=== PATIENT | female | born 1950 | race Caucasian/White ===

== ENCOUNTER 2016-09-06 09:37 | Observation (INO) ==
[2016-09-06] MEDS ORDERED: Nitroglycerin 0.4 MG TAB.SUBL SL ONE (09:51)
[2016-09-06] MEDS ORDERED: Aspirin 81 MG TAB.CHEW PO ONE (09:51)
--- NOTE | 2016-09-06 10:03 | Emergency Department Note ---
Disposition Clinical Impression: Unstable angina Acute exacerbation of CHF (congestive heart failure) Qualifiers: Congestive heart failure type: unspecified congestive heart failure type Qualified Code(s): I50.9 - Heart failure, unspecified Disposition: Admitted As Inpatient Condition: Good Referrals: Carroll Shipman MD [Primary Care Provider] - Forms: ED Satisfaction Letter Chest Pain HPI - General Chief Complaint: ED Chest Pain Stated Complaint: chest pain, josias Time Seen by Provider: 09/06/16 09:45 Source: patient, EMS Mode of arrival: EMS Limitations: no limitations Vital Signs Reviewed: Yes Nursing Notes Reviewed: Yes - History of Present Illness HPI Narrative: 65-year-old female with history of CAD, status post CABG, hypertension, hyperlipidemia, type 2 diabetes who presents to the ER with a chief complaint of chest pain. Patient states she was seen at her primary care provider today and she was referred here due to ongoing chest pain. She reports that since July she has had intermittent chest pain that comes roughly every 2 days. Reports onset at rest with a duration of roughly 30 minutes. States that it feels like there is a heaviness there. Reports that whenever she goes to walk her shortness of breath and chest pain worsen. She states she did have a recent stress test which was okay. She reports her CABG was maybe in 2006. Patient does follow with cardiology. She denies a history of DVT or PE. Does report that she feels more swollen than usual. No other complaints. Pt complaint: chest pain Onset (ago): hour(s) Duration: intermittent Onset: during rest Pain Location: left chest Severity: moderate Severity scale (1-10): 7 Quality: heaviness Pain Radiation: none Improves with: rest Worsens with: exertion Associated symptoms: Reports: nausea, diaphoresis, dyspnea. Denies: vomiting Treatments prior to arrival chest pain: none - Related Data On Oral Contraceptives: No Home Medications Medication Instructions Recorded Confirmed Allopurinol [Zyloprim] 300 mg PO DAILY 03/31/15 03/31/15 Aspirin [Adult Low Dose Aspirin EC] 81 mg PO DAILY 03/31/15 03/31/15 Atenolol [Tenormin] 100 mg PO DAILY 03/31/15 03/31/15 Atorvastatin Calcium [Lipitor] 80 mg PO DAILY 03/31/15 03/31/15 Cetirizine HCl [Zyrtec] 10 mg PO DAILY 03/31/15 03/31/15 Cetirizine HCl [Zyrtec] 10 mg PO DAILY 03/31/15 03/31/15 Citalopram Hydrobromide [Celexa] 40 mg PO DAILY 03/31/15 03/31/15 Diltiazem HCl [Diltiazem 24Hr Cd] 120 mg PO DAILY 03/31/15 03/31/15 Ergocalciferol (VITAMIN D2) 50,000 unit PO 2XW 03/31/15 03/31/15 [Drisdol (50,000 Unit)] Ipratropium/Albuterol Neb [Duoneb] 3 ml IH Q6HR 03/31/15 03/31/15 Isosorbide MONOnitrate (24 HR) 30 mg PO DAILY 03/31/15 03/31/15 [Imdur] Magnesium Oxide [Magnesium] 400 mg PO BID 03/31/15 03/31/15 Metformin HCl [Fortamet] 1,000 mg PO BID 03/31/15 03/31/15 Omeprazole [PriLOSEC] 40 mg PO DAILY 03/31/15 03/31/15 Ranitidine HCl [Zantac] 150 mg PO DAILY 03/31/15 03/31/15 Ranolazine [Ranexa] 1,000 mg PO BID 03/31/15 03/31/15 SitaGLIPtin [Januvia] 50 mg PO DAILY 03/31/15 03/31/15 Spironolactone [Aldactone] 25 mg PO DAILY 03/31/15 03/31/15 Previous Rx's Medication Instructions Recorded HYDROcodone/Acet 5/325 mg [Falun 1 tab PO Q6H PRN #10 tab 10/04/15 5-325 mg] Ondansetron [Zofran] 8 mg PO Q8HR #24 tablet 10/04/15 Albuterol Sulfate [Albuterol 2 puff IH Q4HR #1 hfa.aer.ad 10/06/15 Inhaler] HYDROcodone BIT/Homatropine LQ 5 mg PO Q6H #60 syrup 10/06/15 [Hycodan Syrup] Levofloxacin [Levaquin] 750 mg PO DAILY #7 tablet 10/06/15 Ondansetron ODT [Zofran ODT] 4 mg PO Q6HR #10 tab.rapdis 10/06/15 Allergies Allergy/AdvReac Type Severity Reaction Status Date / Time ibuprofen Allergy Mild Hives Verified 03/31/15 10:28 lisinopril Allergy Hives Verified 10/05/15 19:59 potassium chloride Allergy Difficulty Verified 09/06/16 10:30 [From [facility]] Breathing All systems ED: reviewed and negative except as stated. Constitutional: Reports: chills. Denies: fever Cardiovascular: Reports: chest pain, dyspnea on exertion Respiratory: Reports: dyspnea. Denies: cough, wheezes Gastrointestinal: Reports: nausea. Denies: abdominal pain, vomiting Musculoskeletal: Denies: back pain, neck pain Chest Pain PMH - Past Medical History Medical history: Reports: diabetes, hyperlipidemia, hypertension Surgical history: Reports: cholecystectomy, coronary bypass (CABG), herniorrhaphy Psychiatric history: Reports: anxiety, depression - Social History Smoking Status: Never smoker Alcohol use: Reports: none Drug use: Reports: none Physical Exam - General Limitations: no limitations General appearance: alert, in no apparent distress - Head Head exam: atraumatic, normocephalic, normal inspection - Eye Eye exam: Present: normal appearance, EOMI - ENT ENT exam: normal exam - Neck Neck exam: Present: normal inspection, full ROM - Chest Chest inspection: Present: normal inspection, symmetric chest wall rise - Respiratory Respiratory exam: Present: normal lung sounds bilaterally. Absent: accessory muscle use - Cardiovascular Cardiovascular exam: Present: regular rate, normal rhythm, normal heart sounds - Abdominal Exam Abdominal exam: Present: soft, Non-Tender. Absent: tenderness - Expanded Upper Extremity Exam Shoulder exam: Present: normal inspection, full ROM Arm exam: Present: normal inspection, full ROM Elbow exam: Present: normal inspection, full ROM Forearm/Wrist exam: Present: normal inspection, full ROM Hand exam: Present: normal inspection, full ROM - Expanded Lower Extremity Exam Hip/Pelvis exam: Present: normal inspection, full ROM Upper leg exam: Present: normal inspection, full ROM Knee exam: Present: normal inspection, full ROM Lower leg exam: Present: normal inspection, full ROM, swelling (1+ bilateral lower extremity pitting edema) Ankle exam: Present: normal inspection, full ROM Foot/toe exam: Present: normal inspection, full ROM - Neurological Exam Neurological exam: Present: alert - Psychiatric Psychiatric exam: Present: normal affect, normal mood - Skin Skin exam: Present: warm, dry, intact, normal color Course Course Narrative: Patient seen and examined. Vital signs reviewed. She reports that she is still having active chest pain. We will get an EKG, chest x-ray as well as labs. We will also give a trial of nitroglycerin. Disposition pending. Patient's last echo shows an EF of 55-60%. - Reevaluation(s) Reevaluation #1: I discussed results of lab work and imaging with the patient. She states that the nitroglycerin did help her pain. I discussed admission with the patient. She reports that she does not want to be admitted to the hospital. We will give her a dose of Lasix and ambulate her here with pulse oximetry. Disposition pending. Reevaluation #2: Patient reports that she would like to be admitted. We will contact the hospitalist. Vital Signs Temperature 98.3 F 09/06/16 09:44 Pulse Rate 70 09/06/16 09:44 Respiratory Rate 22 09/06/16 09:44 Blood Pressure 194/108 09/06/16 09:44 O2 Sat by Pulse Oximetry 97 09/06/16 09:44 Temperature 98.3 F 09/06/16 09:44 Pulse Rate 66 09/06/16 12:26 Respiratory Rate 20 09/06/16 12:26 Blood Pressure 148/73 09/06/16 12:26 O2 Sat by Pulse Oximetry 95 09/06/16 12:26 Oxygen Delivery Oxygen Delivery Nasal Cannula Chest Pain - [facility] Narrative Medical decision making narrative: 65-year-old female presents to the ER due to chest pain. Has been going on for a few months. She gives a decent story for unstable angina. She also has pulmonary congestion on her chest x-ray. Patient was given sublingual nitroglycerin with improvement of her symptoms. We also gave her 40 mg of Lasix. Patient ambulated in the department with desaturation to 83%. This case was discussed with the hospitalist and the patient is admitted for further evaluation. - Lab Data Lab results reviewed: Yes I reviewed the patient's lab results. Result diagrams: 09/06/16 10:11 09/06/16 10:11 Lab Results 09/06/16 09/06/16 09/06/16 Range/Units 10:11 10:11 10:11 WBC 7.5 (4.3-11.1) K/mcL RBC 4.09 (3.82-4.97) M/mcL Hgb 11.3 L (11.5-15.4) g/dL Hct 36.4 (35.3-44.9) % MCV 89.0 (83.0-100.0) fL MCH 27.6 L (28.0-33.3) pg MCHC 31.0 L (31.6-35.5) g/dL RDW 14.5 (11.5-14.5) % Plt Count 156 (140-400) K/mcL MPV 9.4 (9.4-12.4) fL Immature Gran % 0.4 (0-4) % Seg Neutrophils % 70.0 % Lymphocytes % 19.7 % Monocytes % 8.0 % Eosinophils % 1.6 % Basophils % 0.3 % Neutrophils # 5.3 (1.6-8.9) K/mcL Lymphocytes # 1.5 (0.6-4.6) K/mcL Monocytes # 0.6 (0.0-1.3) K/mcL Eosinophils # 0.1 (0.0-0.6) K/mcL Basophils # 0.0 (0.0-0.2) K/mcL Sodium 143 (136-145) mEq/L Potassium 3.9 (3.5-4.5) mEq/L Chloride 107 (98-109) mEq/L Carbon Dioxide 27 (19-29) mEq/L BUN 10 (7-20) mg/dL Creatinine 0.99 (0.57-1.11) mg/dL Est GFR ( Amer) > 60 (> 60) Est GFR (Non-Af Amer) 56 L (> 60) BUN/Creatinine Ratio 10 (6-26) Glucose 185 H (70-99) mg/dL Calculated Osmolality 300 (280-300) Calcium 8.8 (8.6-10.8) mg/dL Troponin I (0-0.03) ng/mL B-Natriuretic Peptide 207 H (0-100) pg/mL 09/06/16 Range/Units 10:11 WBC (4.3-11.1) K/mcL RBC (3.82-4.97) M/mcL Hgb (11.5-15.4) g/dL Hct (35.3-44.9) % MCV (83.0-100.0) fL MCH (28.0-33.3) pg MCHC (31.6-35.5) g/dL RDW (11.5-14.5) % Plt Count (140-400) K/mcL MPV (9.4-12.4) fL Immature Gran % (0-4) % Seg Neutrophils % % Lymphocytes % % Monocytes % % Eosinophils % % Basophils % % Neutrophils # (1.6-8.9) K/mcL Lymphocytes # (0.6-4.6) K/mcL Monocytes # (0.0-1.3) K/mcL Eosinophils # (0.0-0.6) K/mcL Basophils # (0.0-0.2) K/mcL Sodium (136-145) mEq/L Potassium (3.5-4.5) mEq/L Chloride (98-109) mEq/L Carbon Dioxide (19-29) mEq/L BUN (7-20) mg/dL Creatinine (0.57-1.11) mg/dL Est GFR ( Amer) (> 60) Est GFR (Non-Af Amer) (> 60) BUN/Creatinine Ratio (6-26) Glucose (70-99) mg/dL Calculated Osmolality (280-300) Calcium (8.6-10.8) mg/dL Troponin I 0.01 (0-0.03) ng/mL B-Natriuretic Peptide (0-100) pg/mL - Radiology Data Radiology results reviewed: Yes I reviewed the patient's radiology results. Chest X-Ray 09/06/16 09:51 IMPRESSION: Cardiomegaly, pulmonary vascular congestion, and mild pulmonary edema. Findings could reflect congestive heart failure. There are small bilateral pleural effusions. D/ / 09/06/2016 10:32:49 Sara Pickard MD / sandra Interpreting Provider: Sara Pickard MD - EKG Data EKG attestation: Yes I reviewed and interpreted this EKG. EKG results narrative: EKG demonstrates normal sinus rhythm with rate of 71 bpm. Normal axis. DE interval 202 QRS duration 79 QTC 419 diffuse T wave flattening in the lateral and inferior leads unchanged from previous. No ST elevations or depressions. No acute ischemic findings. No significant changes from previous EKG dated . Heart Score - Score History: Moderately Suspicious EKG: Normal Age: Greater than 65 Risk Factors: Equal/Greater than 3 risk factor or history of atherosclerotic disease Troponin: Less than normal limit HEART Score Total: 5 S.B.A.Tutu - Joe Situation: Demographics, MOA Background: Presenting Complaint, Relevant PMH, Meds, & Allergies Assessment: Vital Signs, Course and respsone to treatment, Exam Concerns, Patient/Family Expectation, Pertinant Lab Results, Outstanding Labs Recommendation: Barrier(s) to disposition, Recommendation based on pending studies, treatments, or consults (n) Jose L.Zane.A.Tutu Report Given to: Dr. Nicolasa Diaz Repor Time: 13:12
--- NOTE | 2016-09-06 10:15 | Emergency Department Note ---
START Narrative - START START: I examined this patient and my medical decision-making was reviewed with the [employer]/PA/Advanced Practice Nurse/Resident Physician. I agree with the documented findings, disposition and treatment plan as described except to the extent set forth below. ED attending note: Patient seen with emergency medicine resident Dr. Summers. Please see a copy of his note for details of the H&P, evaluation, management and disposition of this patient. We independently had [id number] contact with the patient Briefly: 65-year-old female with chest pain. Referred by her PCP for ongoing chest pain. Patient had a stress test results were known gallbladder looked up. EKG shows no acute ischemic changes. She does have worsening lower extremity pitting edema 3+. Slight basilar crackles. Patient having troponin chest x-ray normal lab work. Disposition pending. Patient stable.
[2016-09-06 10:21] LABS: Basophils % 0.3 %; Eosinophils # 0.1 K/mcL (0.0-0.6); Eosinophils % 1.6 %; Hematocrit 36.4 % (35.3-44.9); Hemoglobin 11.3 g/dL (11.5-15.4); Immature Granulocytes % 0.4 % (0-4); Lymphocytes # 1.5 K/mcL (0.6-4.6); Lymphocytes % 19.7 %; Mean Corpuscular Hemoglobin 27.6 pg (28.0-33.3); Mean Platelet Volume 9.4 fL (9.4-12.4); Monocytes # 0.6 K/mcL (0.0-1.3); Neutrophils # 5.3 K/mcL (1.6-8.9); Platelet Count 156 K/mcL (140-400); Red Blood Count 4.09 M/mcL (3.82-4.97); Red Cell Distribution Width 14.5 % (11.5-14.5)
[2016-09-06 10:31] LABS: BUN/Creatinine Ratio 10 (6-26); Blood Urea Nitrogen 10 mg/dL (7-20); Calcium 8.8 mg/dL (8.6-10.8); Carbon Dioxide 27 mEq/L (19-29); Chloride 107 mEq/L (98-109); Glucose 185 mg/dL (70-99); Osmolality,Calculated 300 (280-300); Potassium 3.9 mEq/L (3.5-4.5); Sodium 143 mEq/L (136-145); eGFR For African Americans > 60 (> 60); eGFR For Non-African Americans 56 (> 60)
[2016-09-06] MEDS ORDERED: Furosemide 40 MG/4 ML VIAL IVP ONE (10:48)
[2016-09-06] MEDS ORDERED: Naloxone 0.4 MG/ML INJ IVP PRN (13:59)
--- NOTE | 2016-09-06 14:21 | Internal Med History&Physical ---
<Jhonathan Baldwin - Last Filed: 09/06/16 17:48> Internal Medicine - H&P: HPI History of present illness: Ms. Yuen is a 65 year old female Internal Medicine - H&P: Meds Allopurinol [Zyloprim] 300 mg PO DAILY 03/31/15 [History] Aspirin [Adult Low Dose Aspirin EC] 81 mg PO DAILY 03/31/15 [History] Atenolol [Tenormin] 100 mg PO DAILY 03/31/15 [History] Cetirizine HCl [Zyrtec] 10 mg PO DAILY 03/31/15 [History] Citalopram Hydrobromide [Celexa] 40 mg PO DAILY 03/31/15 [History] Diltiazem HCl [Diltiazem 24Hr Cd] 120 mg PO DAILY 03/31/15 [History] Isosorbide MONOnitrate (24 HR) [Imdur] 30 mg PO DAILY 03/31/15 [History] Metformin HCl [Fortamet] 1,000 mg PO BID 03/31/15 [History] Omeprazole [PriLOSEC] 40 mg PO DAILY 03/31/15 [History] Ranolazine [Ranexa] 1,000 mg PO BID 03/31/15 [History] SitaGLIPtin [Januvia] 50 mg PO DAILY 03/31/15 [History] Spironolactone [Aldactone] 25 mg PO DAILY 03/31/15 [History] Albuterol Sulfate [Albuterol Inhaler] 2 puff IH Q4HR #1 hfa.aer.ad 10/06/15 [Rx] Atorvastatin [Lipitor] 10 mg PO HS 09/06/16 [History] Ezetimibe [Zetia] 10 mg PO DAILY 09/06/16 [History] Insulin DETEMIR [Levemir] 78 unit SQ HS 09/06/16 [History] Allergies ibuprofen Allergy (Mild, Verified 03/31/15 10:28) Hives lisinopril Allergy (Verified 10/05/15 19:59) Hives potassium chloride [From K-Dur] Allergy (Verified 09/06/16 10:30) Difficulty Breathing All Systems PM: A 10-system review of systems was performed and is negative for pertinent findings except as documented above in the HPI. - Constitutional Vitals: Temp Pulse Resp BP Pulse Ox 97.7 F 73 18 149/84 96 09/06/16 15:31 09/06/16 15:31 09/06/16 15:51 09/06/16 15:31 09/06/16 15:51 Internal Med - H&P Results - Labs CBC & Chem 7: 09/06/16 10:11 09/06/16 10:11 Labs: Cardiac Enzymes 09/06/16 Range/Units 16:24 Troponin I 0.01 (0-0.03) ng/mL - Attending Attestation I examined this patient and my medical decision-making was reviewed with the DATA CENTER TECHNICIAN/PA/Advanced Practice Nurse/Resident Physician. I agree with the documented findings, disposition and treatment plan as described except to the extent set forth below. Patient w/ CAD, s/p CABG, here w/ CP now CP free, reports mild pressure and SOB. Initial troponin negative. Heart RRR S1S2 + leg edema. Plan R/O ACS, cardiology consult, iv lasix for CHF. <Charisma Meyers - Last Filed: 09/06/16 23:58> Date of Encounter: 09/06/16 Time of Encounter: 14:16 Assessment and Plan (1) Congestive heart failure Current visit: Yes Status: Acute Patient presented with chest pain on and off since May as well as increasing shortness of breath and dyspnea on exertion since May. Chest x- ray revealed cardiomegaly, pulmonary vascular congestion, mild pulmonary edema, and small bilateral pleural effusions. BNP was elevated at 207. Previous echo was in March 2015 and showed LVEF of 55-60%, normal LV size and systolic function, normal LV diastolic function. She reports she has never been diagnosed with congestive heart failure. Hold home dose of diltiazem. 40 mg Lasix IV push twice a day Titrate oxygen to maintain oxygen saturation greater than 90% Echocardiogram Consult to cardiology, spoke with Dr. An, they will see patient today. Qualifiers: Congestive heart failure type: unspecified congestive heart failure type Congestive heart failure chronicity: unspecified congestive heart failure chronicity Qualified Code(s): I50.9 - Heart failure, unspecified (2) Chest pain, rule out acute myocardial infarction Current visit: No Status: Acute Patient reporting chest pain daily since May, accompanied by increasing shortness of breath and increasing dyspnea on exertion. She has a history of coronary artery disease status post CABG, hypertension, type 2 diabetes. Initial troponin negative at 0.01. EKG showed normal sinus rhythm, no ST elevations or depressions, no changes from previous EKG in September 2015. Continuous cardiac cath rn Serial troponins for trend Echocardiogram Cardiology consult, spoke with Dr. An (3) COPD (chronic obstructive pulmonary disease) Current visit: No Status: Chronic Patient with diagnosis of COPD, wears 2 L of oxygen at home. Reporting increased shortness of breath over the last several months. Reports dry cough. DuoNeb treatments 4 times a day Albuterol nebulizer every 2 hours when necessary Titrate oxygen to maintain oxygen saturation greater than 90%. Qualifiers: COPD type: chronic bronchitis Chronic bronchitis type: unspecified Qualified Code(s): J42 - Unspecified chronic bronchitis (4) Type 2 diabetes mellitus Current visit: No Status: Chronic diabetic, heart healthy diet Hold home Januvia and Metformin Check blood sugars ACHS Continue home basal dose of 78u levemir HS sliding scale correction dose ACHS hypoglycemic protocol. Qualifiers: Diabetes mellitus complication status: without complication Diabetes mellitus long term care phlebotomist insulin use: with detention use Qualified Code(s): E11.9 - Type 2 diabetes mellitus without complications; Z79.4 - [facility] (current) use of insulin (5) DVT prophylaxis Current visit: No Status: Acute Encourage ambulation Antiembolic stockings Lovenox 40 mg subcutaneous daily Internal Medicine - H&P: HPI Chief complaint: chest pain Admitted From: Emergency Dept Plans for Post Hospital Care: Home History of present illness: Ms. Yuen is a 65 year old female with hypertension, type 2 diabetes, COPD, hyperlipidemia, sleep apnea, coronary artery disease status post CABG, who presented to the emergency department at the direction of her insurance office manager today with complaints of chest pain on and off since May. She reports she has episodes of chest pain daily, she describes them as dull and achy and she says she they last a few hours. Her current episode of chest pain started last evening and it has not let up. She also reports increased shortness of breath from her baseline. She does have COPD and wears 2 L of oxygen at home. She notes both her legs and feet have been swelling more than her baseline as well, she is also complaining of a dry cough and some mild nausea. She reports occasional palpitations and occasional lightheadedness as well. She denies any fever, chills, sweats, headache. She denies any dysuria or changes in bowel habits or abdominal pain or vomiting. Evaluation in the emergency department was significant for an elevated BNP of 207 up from her previous normal value of 76 in September 2015. Troponin was negative at 0.01, EKG showed normal sinus rhythm no ST elevations or depressions and no changes from previous EKG in September 2015. 3 showed cardiomegaly and pulmonary vascular congestion, mild pulmonary edema, small bilateral pleural effusions. On exam, patient is alert and oriented, in no acute distress. Heart has regular rate and rhythm with systolic murmur. Lungs have mild crackles in bilateral bases. Respiratory rate is normal and respiratory effort is normal. She has bilateral lower extremity +2 edema. Past Med Surg Social Fam HX - Past Medical History Medical history: COPD, coronary artery disease, diabetes, hyperlipidemia, hypertension Psychiatric history: anxiety, depression - Past Surgical History Surgical History: cholecystectomy, coronary bypass (CABG), herniorrhaphy - Social History Smoking Status: Never smoker Smokeless Tobacco Status: No Alcohol use: none Drug use: none - Family History Mother Living Status: Age at : 86 Cause of : Heart failure Hx Family Cardiac Disorders: Yes Father Living Status: Age at : 52 Cause of : [place] Hx Family Cardiac Disorders: Yes All Systems PM: A 10-system review of systems was performed and is negative for pertinent findings except as documented above in the HPI. - Constitutional Constitutional: no chills, no fever(s), no night sweats - EENT Eyes: no change in vision, no discharge, no pain, no photophobia Ears: no ear discharge, no ear pain, no tinnitus Nose, mouth and throat: no dysphagia, no nasal discharge, no neck pain, no sore throat - Cardiovascular Cardiovascular ROS IM: chest pain, dyspnea, dyspnea on exertion, lightheadedness , palpitations, no diaphoresis, no syncope - Respiratory Respiratory: cough, dyspnea, dyspnea on exertion, no wheezing, no excessive phlegm production - Gastrointestinal Gastrointestinal: no abdominal pain, no diarrhea, no hematemesis, no hematochezia, no melena, no nausea, no vomiting - Genitourinary Genitourinary: no change in urinary stream, no dysuria, no flank pain, no hematuria - Musculoskeletal Musculoskeletal ROS IM: no numbness, no tingling - Integumentary Integumentary IM: no rash, no unusual bruising - Neurological Neurological ROS: no confusion, no convulsions, no focal weakness, no numbness, no tingling, no tremor(s) - Hematologic/Lymphatic Hematologic/Lymphatic: no easy bruising - Constitutional Vitals: Temp Pulse Resp BP Pulse Ox 98.3 F 66 20 148/73 95 09/06/16 09:44 09/06/16 12:26 09/06/16 12:26 09/06/16 12:26 09/06/16 12:26 General appearance: Present: A&O X 3, morbidly obese, pleasant, no acute distress - Head Head exam: Present: atraumatic, normocephalic - Eye Eye exam: Present: PERRL, conjuntiva pink, sclera anicteric Pupils: Present: PERRL - Neck Neck exam general surgery: Present: supple, trachea midline. Absent: lymphadenopathy - Respiratory Respiratory exam: Present: CTAB. Absent: accessory muscle use, rales, rhonchi, wheezes Additional comments: crackles in bilateral bases - Cardiovascular Cardiovascular exam: Present: RRR, +S1, +S2, systolic murmur. Absent: diastolic murmur, gallop, rubs - GI/Abdominal GI/Abdominal exam: Present: normal bowel sounds, soft, no peritoneal signs. Absent: distended, tenderness - Extremities Exam Extremities exam: Present: pedal edema, warm, radial pulses palpable and symetrical. Absent: calf tenderness, cyanotic Additional comments: +2 BLE edema - Neurological Exam Neurological exam: Present: CN II-XII intact, oriented X3, no focal deficits. Absent: facial droop, speech deficit - Skin Skin exam: Present: dry, intact Internal Med - H&P Results - Labs CBC & Chem 7: 09/06/16 10:11 09/06/16 10:11 Labs: All Lab Results (24 Hours) 09/06/16 09/06/16 09/06/16 Range/Units 10:11 10:11 10:11 WBC 7.5 (4.3-11.1) K/mcL RBC 4.09 (3.82-4.97) M/mcL Hgb 11.3 L (11.5-15.4) g/dL Hct 36.4 (35.3-44.9) % MCV 89.0 (83.0-100.0) fL MCH 27.6 L (28.0-33.3) pg MCHC 31.0 L (31.6-35.5) g/dL RDW 14.5 (11.5-14.5) % Plt Count 156 (140-400) K/mcL MPV 9.4 (9.4-12.4) fL Immature Gran % 0.4 (0-4) % Seg Neutrophils % 70.0 % Lymphocytes % 19.7 % Monocytes % 8.0 % Eosinophils % 1.6 % Basophils % 0.3 % Neutrophils # 5.3 (1.6-8.9) K/mcL Lymphocytes # 1.5 (0.6-4.6) K/mcL Monocytes # 0.6 (0.0-1.3) K/mcL Eosinophils # 0.1 (0.0-0.6) K/mcL Basophils # 0.0 (0.0-0.2) K/mcL Sodium 143 (136-145) mEq/L Potassium 3.9 (3.5-4.5) mEq/L Chloride 107 (98-109) mEq/L Carbon Dioxide 27 (19-29) mEq/L BUN 10 (7-20) mg/dL Creatinine 0.99 (0.57-1.11) mg/dL Est GFR ( Amer) > 60 (> 60) Est GFR (Non-Af Amer) 56 L (> 60) BUN/Creatinine Ratio 10 (6-26) Glucose 185 H (70-99) mg/dL Calculated Osmolality 300 (280-300) Calcium 8.8 (8.6-10.8) mg/dL Troponin I (0-0.03) ng/mL B-Natriuretic Peptide 207 H (0-100) pg/mL 09/06/16 Range/Units 10:11 WBC (4.3-11.1) K/mcL RBC (3.82-4.97) M/mcL Hgb (11.5-15.4) g/dL Hct (35.3-44.9) % MCV (83.0-100.0) fL MCH (28.0-33.3) pg MCHC (31.6-35.5) g/dL RDW (11.5-14.5) % Plt Count (140-400) K/mcL MPV (9.4-12.4) fL Immature Gran % (0-4) % Seg Neutrophils % % Lymphocytes % % Monocytes % % Eosinophils % % Basophils % % Neutrophils # (1.6-8.9) K/mcL Lymphocytes # (0.6-4.6) K/mcL Monocytes # (0.0-1.3) K/mcL Eosinophils # (0.0-0.6) K/mcL Basophils # (0.0-0.2) K/mcL Sodium (136-145) mEq/L Potassium (3.5-4.5) mEq/L Chloride (98-109) mEq/L Carbon Dioxide (19-29) mEq/L BUN (7-20) mg/dL Creatinine (0.57-1.11) mg/dL Est GFR ( Amer) (> 60) Est GFR (Non-Af Amer) (> 60) BUN/Creatinine Ratio (6-26) Glucose (70-99) mg/dL Calculated Osmolality (280-300) Calcium (8.6-10.8) mg/dL Troponin I 0.01 (0-0.03) ng/mL B-Natriuretic Peptide (0-100) pg/mL - Diagnostic Studies Chest x-ray Additional comments: Chest X-Ray 09/06/16 09:51 IMPRESSION: Cardiomegaly, pulmonary vascular congestion, and mild pulmonary edema. Findings could reflect congestive heart failure. There are small bilateral pleural effusions. D/ / 09/06/2016 10:32:49 Sara Pickard MD / sandra Interpreting Provider: Sara Pickard MD
[2016-09-06] MEDS ORDERED: Albuterol 2.5 MG/3 ML NEBULIZER IH PRN (14:36)
[2016-09-06] MEDS ORDERED: *HR* Dextrose 50 % in Water (Syg) 50 ML SYRINGE IVP PRN (14:37)
[2016-09-06] MEDS ORDERED: Dextrose Gel 15 GM PO PRN ×2 (14:37)
[2016-09-06] MEDS ORDERED: D5% in Water 1,000 ML IV PRN (14:37)
[2016-09-06 15:21] LABS: Hemoglobin A1C 7.2 %
[2016-09-06] MEDS: Ipratropium/Albuterol Neb 3 ML IH SCH ×2 (15:51→23:34)
[2016-09-06] MEDS: Insulin LISPRO 300 UNITS/3 ML VIAL SQ SCH ×2 (17:28→23:44)
[2016-09-06] MEDS ORDERED: Furosemide 40 MG/4 ML VIAL IVP SCH (21:00)
[2016-09-06] MEDS ORDERED: Insulin DETEMIR 100 UNIT/ML X5UNITS SQ SCH (21:00)
[2016-09-06] MEDS: Insulin DETEMIR 100 UNIT/ML X5UNITS SQ SCH (23:54)
[2016-09-06] MEDS: Ranolazine 500 MG TAB.ER.12H PO SCH (23:54)
[2016-09-07] MEDS: Ipratropium/Albuterol Neb 3 ML IH SCH ×4 (05:10→22:26)
[2016-09-07] MEDS: *HR* Enoxaparin 40 MG/0.4 ML SYRINGE SQ SCH (06:24)
[2016-09-07 06:57] LABS: Basophils % 0.3 %; Eosinophils # 0.1 K/mcL (0.0-0.6); Eosinophils % 1.8 %; Hemoglobin 11.5 g/dL (11.5-15.4); Immature Granulocytes % 0.4 % (0-4); Lymphocytes # 2.1 K/mcL (0.6-4.6); Lymphocytes % 30.9 %; Mean Corpuscular HGB Conc 30.3 g/dL (31.6-35.5); Mean Corpuscular Hemoglobin 27.3 pg (28.0-33.3); Mean Corpuscular Volume 90.3 fL (83.0-100.0); Monocytes # 0.7 K/mcL (0.0-1.3); Monocytes % 9.7 %; Neutrophils # 3.9 K/mcL (1.6-8.9); Platelet Count 163 K/mcL (140-400); Red Blood Count 4.21 M/mcL (3.82-4.97); Red Cell Distribution Width 14.6 % (11.5-14.5); Segmented Neutrophils % 56.9 %
[2016-09-07 06:58] LABS: BUN/Creatinine Ratio 11 (6-26); Blood Urea Nitrogen 12 mg/dL (7-20); Calcium 8.7 mg/dL (8.6-10.8); Carbon Dioxide 31 mEq/L (19-29); Chloride 99 mEq/L (98-109); Glucose 156 mg/dL (70-99); Osmolality,Calculated 301 (280-300); Potassium 3.6 mEq/L (3.5-4.5); Sodium 144 mEq/L (136-145); eGFR For African Americans > 60 (> 60); eGFR For Non-African Americans 52 (> 60)
--- NOTE | 2016-09-07 07:11 | ECHO - Doppler Report ---
Echocardiogram Name: Lisa Yuen Date of Study: 09/06/2016 Date: 1950 Ht: 62.0 in Medical Record#: [id number] Age: 65 Wt: 285.0 lb Gender: Female BSA: 2.22 Order #: [id number] Location: [facility] Room #: 2A37 Reading Physician: Otoniel Gar MD, [facility] Resource Management Specialist: Elise Betancourt Ordering Physician: Charisma Meyers CNP Primary Physician: Carroll Shipman MD Indications: Chest pain, CHF Impressions: Normal LV systolic function, LVEF 60-65%. Mild-moderate concentric left ventricular hypertrophy. Moderate left ventricular diastolic dysfunction. Normal right ventricular size and function. Moderately dilated left atrium. Mild aortic stenosis. Unable to estimate RVSP due to lack of TR jet. Left Ventricular Wall Motion: Rest Echo Findings All wall segments showed normal motion. Findings: Study Quality * Suboptimal echo windows. ECG Findings * Normal sinus rhythm. Left Ventricle * Normal LV systolic function, LVEF 60-65%. * Mild-moderate concentric left ventricular hypertrophy. * Moderate left ventricular diastolic dysfunction. Right Ventricle * Normal right ventricular size and function. Left Atrium * Moderately dilated left atrium. Right Atrium * Normal right atrial size. Interatrial Septum * Lipomatous interatrial septum. Aorta * Normally sized aortic root. Pericardium * There is no pericardial effusion present. IVC * Normal IVC dimensions and inspiratory collapse. Aortic Valve * Aortic valve not well visualized. * Mild aortic stenosis. * No aortic regurgitation. Mitral Valve * Mild mitral annular calcification * No mitral stenosis. * Trace mitral regurgitation. Tricuspid Valve * Tricuspid valve not well visualized. * No tricuspid stenosis. * Trace tricuspid regurgitation. * Unable to estimate RVSP due to lack of TR jet. Pulmonic Valve * Pulmonic valve is not well visualized. * No pulmonic stenosis. * Trace pulmonic regurgitation. History Hypertension Diabetes Hypercholesteremia Family History of CAD History of CAD/PTCA Coronary Artery Bypass Graft Congestive Heart Failure 04/01/2015 a Previous Echo was performed. Measurements: BP: 149/ 84 2D Normal Values RVIDd: 3.10 cm IVSd: 1.30 cm 0.6 - 1.0 cm LVIDd: 5.90 cm 3.7 - 5.6 cm LVPWd: 1.40 cm 0.6 - 1.1 cm LVIDs: 3.80 cm 1.5 - 3.6 cm AO: 2.70 cm < 4.0 cm LVOT Diam: 2.00 cm LA volume: 86 Mitral Valve Peak E:.76 m/sec Peak A:.67 m/sec E/A Ratio:1.1 Peak E' Lat Abdullahi:6.34 cm/s Peak E' Med Abdullahi:3.8 cm/s E/E' Lat Ratio:11.9 E/E' Med Ratio:19.9 Aortic Valve Peak Abdullahi:2.60 m/sec Peak Grad:27.00 mmHg Mean Grad:12.00 mmHg Valve Area:1.82 cm2 Updated by Otoniel Gar MD, [facility] on 09/07/2016 7:07:20 AM electronically signed on 09/07/2016 7:07:48 AM with status of Final Wall Motion Fry: 1=Normal, 2=Hypokinesis, 3=Akinesis, 4=Dyskinesis, 5=Aneurysmal, 6=Hyperkinetic, X=Not Visualized (Blank)=Missing
--- NOTE | 2016-09-07 08:18 | Internal Med Progress Note ---
<Matt Smart - Last Filed: 09/07/16 11:02> Date of Encounter: 09/07/16 Time of Encounter: 08:18 - Assessment and plan (1) Acute exacerbation of CHF (congestive heart failure) Current Visit: Yes Status: Acute Assessment and plan: 09/07/16 Significant clinical improvement Echocardiogram: LVEF 60-65%, moderate left ventricular diastolic dysfunction Cardiac stress testing (pharmacologic) pending 09/06/16 Patient presented with chest pain on and off since May as well as increasing shortness of breath and dyspnea on exertion since May. Chest x- ray revealed cardiomegaly, pulmonary vascular congestion, mild pulmonary edema, and small bilateral pleural effusions. BNP was elevated at 207. Previous echo was in March 2015 and showed LVEF of 55-60%, normal LV size and systolic function, normal LV diastolic function. She reports she has never been diagnosed with congestive heart failure. Hold home dose of diltiazem. 40 mg Lasix IV push twice a day Titrate oxygen to maintain oxygen saturation greater than 90% Echocardiogram Consult to cardiology, spoke with Dr. An, they will see patient today Qualifiers: Congestive heart failure type: unspecified congestive heart failure type Qualified Code(s): I50.9 - Heart failure, unspecified (2) Chest pain, rule out acute myocardial infarction Current Visit: No Status: Acute Assessment and plan: 09/07/16 Chest pain has resolved Follow-up cardiac stress testing, if normal will likely discharge 09/06/16 Patient reporting chest pain daily since May, accompanied by increasing shortness of breath and increasing dyspnea on exertion. She has a history of coronary artery disease status post CABG, hypertension, type 2 diabetes. Initial troponin negative at 0.01. EKG showed normal sinus rhythm, no ST elevations or depressions, no changes from previous EKG in September 2015. Continuous clinical research monitor Serial troponins for trend Echocardiogram Cardiology consult, spoke with Dr. An (3) COPD (chronic obstructive pulmonary disease) Current Visit: No Status: Chronic Assessment and plan: 09/07/16 Continue current treatment 09/06/16 Patient with diagnosis of COPD, wears 2 L of oxygen at home. Reporting increased shortness of breath over the last several months. Reports dry cough. DuoNeb treatments 4 times a day Albuterol nebulizer every 2 hours when necessary Titrate oxygen to maintain oxygen saturation greater than 90%. Qualifiers: COPD type: chronic bronchitis Chronic bronchitis type: unspecified Qualified Code(s): J42 - Unspecified chronic bronchitis (4) Type 2 diabetes mellitus Current Visit: No Status: Chronic Assessment and plan: 09/07/16 Stable. Continue current plan 09/06/16 diabetic, heart healthy diet Hold home Januvia and Metformin Check blood sugars ACHS Continue home basal dose of 78u levemir HS sliding scale correction dose ACHS hypoglycemic protocol. 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 She was alert and oriented and in no acute distress. She states that her chest pain has resolved and her dyspnea has improved significantly. She denies any new complaints - Constitutional Vitals: Temp Pulse Resp BP Pulse Ox 97.8 F 78 18 144/80 96 09/07/16 08:14 09/07/16 08:14 09/07/16 08:14 09/07/16 08:14 09/07/16 08:14 General appearance: Present: A&O X 3, morbidly obese, pleasant, no acute distress - Head Head exam: Present: atraumatic, normocephalic - Eye Eye exam: Present: PERRL, conjuntiva pink, sclera anicteric Pupils: Present: PERRL - Neck Neck exam general surgery: Present: supple, trachea midline. Absent: lymphadenopathy - Respiratory Respiratory exam: Present: decreased breath sounds, rales. Absent: accessory muscle use, rhonchi, wheezes Additional comments: Mild bilateral rales - Cardiovascular Cardiovascular exam: Present: RRR, +S1, +S2. Absent: diastolic murmur, gallop, rubs, systolic murmur - GI/Abdominal GI/Abdominal exam: Present: normal bowel sounds, soft, no peritoneal signs. Absent: distended, tenderness - Extremities Exam Extremities exam: Present: pedal edema, warm, radial pulses palpable and symetrical. Absent: calf tenderness, cyanotic - Neurological Exam Neurological exam: Present: CN II-XII intact, oriented X3, no focal deficits. Absent: pronater drift, facial droop, speech deficit - Skin Skin exam: Present: dry, intact Internal Medicine: Result - Labs CBC & Chem 7: 09/07/16 06:08 09/07/16 06:08 Labs: Short CBC 09/07/16 Range/Units 06:08 WBC 6.8 (4.3-11.1) K/mcL Hgb 11.5 (11.5-15.4) g/dL Hct 38.0 (35.3-44.9) % Plt Count 163 (140-400) K/mcL Neutrophils # 3.9 (1.6-8.9) K/mcL BMP 09/07/16 06:08 Sodium 144 Potassium 3.6 Chloride 99 Carbon Dioxide 31 H BUN 12 Creatinine 1.06 Glucose 156 H Calcium 8.7 Cardiac Enzymes 09/06/16 09/06/16 Range/Units 16:24 22:25 Troponin I 0.01 0.01 (0-0.03) ng/mL - VTE Documentation of Mechanical Device: Intermittent pneumatic compression device Consult Discharge Plan - Plan Referrals: Carroll Shipman MD [Primary Care Provider] - 09/17/16 3:00 pm (Please follow up as schedule...) <Chaitanya Chairez P - Last Filed: 09/07/16 18:25> - Constitutional Vitals: Temp Pulse Resp BP Pulse Ox 97.7 F 63 18 125/75 93 L 09/07/16 16:24 09/07/16 16:24 09/07/16 16:24 09/07/16 16:24 09/07/16 16:24 Internal Medicine: Result - Labs CBC & Chem 7: 09/07/16 06:08 09/07/16 06:08 Labs: Short CBC 09/07/16 Range/Units 06:08 WBC 6.8 (4.3-11.1) K/mcL Hgb 11.5 (11.5-15.4) g/dL Hct 38.0 (35.3-44.9) % Plt Count 163 (140-400) K/mcL Neutrophils # 3.9 (1.6-8.9) K/mcL BMP 09/07/16 06:08 Sodium 144 Potassium 3.6 Chloride 99 Carbon Dioxide 31 H BUN 12 Creatinine 1.06 Glucose 156 H Calcium 8.7 Cardiac Enzymes 09/06/16 Range/Units 22:25 Troponin I 0.01 (0-0.03) ng/mL - Attending Attestation I examined this patient and my medical decision-making was reviewed with the GEODETIC ENGINEER/PA/Advanced Practice Nurse/Resident Physician. I agree with the documented findings, disposition and treatment plan as described except to the extent set forth below. 2 day stress test : starting tomorrow
[2016-09-07] MEDS: Loratadine 10 MG TABLET PO SCH (08:45)
[2016-09-07] MEDS: Aspirin Enteric Coated 81 MG Tablet PO SCH (08:45)
[2016-09-07] MEDS: Ranolazine 500 MG TAB.ER.12H PO SCH ×2 (08:45→21:22)
[2016-09-07] MEDS: Insulin LISPRO 300 UNITS/3 ML VIAL SQ SCH ×4 (08:45→21:21)
[2016-09-07] MEDS: Spironolactone 25 MG TABLET PO SCH (08:46)
[2016-09-07] MEDS: Furosemide 40 MG/4 ML VIAL IVP SCH ×2 (08:48→16:30)
[2016-09-07] MEDS ORDERED: Isosorbide MONOnitrate (24 HR) 30 MG TAB.ER.24H PO SCH (09:00)
[2016-09-07] MEDS ORDERED: (Ezetimibe [Zetia] 10 MG) PO SCH (09:00)
--- NOTE | 2016-09-07 17:48 | Electrocardiograph Report ---
[place] [id number] Test Date: 2016-09-06 Pat Name: Lisa Yuen Department: 102 Room: 2A Gender: F Loss Prevention Lead: : 1950 Requested By: Ismael Summers Order Number: [id number] Reading MD: Sharifa Morales Measurements Intervals Amma Rate: 71 P: 47 FL: 202 QRS: 25 QRSD: 79 T: 26 QT: 397 QTc: 419 Interpretive Statements SINUS RHYTHM NONSPECIFIC ST \T\ T-WAVE ABNORMALITY Electronically Signed On 09-07-2016 17:47:00 EST by Sharifa Morales
[2016-09-07] MEDS: Insulin DETEMIR 100 UNIT/ML X5UNITS SQ SCH (21:21)
[2016-09-07] MEDS ORDERED: Acetaminophen 325 MG TABLET PO PRN (21:55)
[2016-09-08] MEDS: Ipratropium/Albuterol Neb 3 ML IH SCH ×4 (05:01→23:09)
[2016-09-08] MEDS: *HR* Enoxaparin 40 MG/0.4 ML SYRINGE SQ SCH (06:16)
[2016-09-08] MEDS: Insulin LISPRO 300 UNITS/3 ML VIAL SQ SCH ×4 (08:47→21:16)
[2016-09-08] MEDS ORDERED: Regadenoson 0.4 MG/5 ML SYRINGE IVP ONE (10:24)
[2016-09-08] MEDS: Ranolazine 500 MG TAB.ER.12H PO SCH ×2 (12:23→21:15)
[2016-09-08] MEDS: Aspirin Enteric Coated 81 MG Tablet PO SCH (12:23)
[2016-09-08] MEDS: Loratadine 10 MG TABLET PO SCH (12:24)
[2016-09-08] MEDS: Furosemide 40 MG/4 ML VIAL IVP SCH ×2 (12:24→15:36)
[2016-09-08] MEDS: Spironolactone 25 MG TABLET PO SCH (12:24)
--- NOTE | 2016-09-08 18:03 | Internal Med Progress Note ---
Date of Encounter: 09/08/16 Time of Encounter: 18:01 - Assessment and plan (1) Acute exacerbation of CHF (congestive heart failure) Current Visit: Yes Status: Acute Assessment and plan: 09/08/2016 laying flat and has occasional SOB improved clinically did day 1 of 2 stress test will get stress test result tomorrow 09/07/16 Significant clinical improvement Echocardiogram: LVEF 60-65%, moderate left ventricular diastolic dysfunction Cardiac stress testing (pharmacologic) pending 09/06/16 Patient presented with chest pain on and off since May as well as increasing shortness of breath and dyspnea on exertion since May. Chest x- ray revealed cardiomegaly, pulmonary vascular congestion, mild pulmonary edema, and small bilateral pleural effusions. BNP was elevated at 207. Previous echo was in March 2015 and showed LVEF of 55-60%, normal LV size and systolic function, normal LV diastolic function. She reports she has never been diagnosed with congestive heart failure. Hold home dose of diltiazem. 40 mg Lasix IV push twice a day Titrate oxygen to maintain oxygen saturation greater than 90% Echocardiogram Consult to cardiology, spoke with Dr. An, they will see patient today Qualifiers: Congestive heart failure type: unspecified congestive heart failure type Qualified Code(s): I50.9 - Heart failure, unspecified (2) Chest pain, rule out acute myocardial infarction Current Visit: No Status: Acute Assessment and plan: 09/07/16 Chest pain has resolved Follow-up cardiac stress testing, if normal will likely discharge 09/06/16 Patient reporting chest pain daily since May, accompanied by increasing shortness of breath and increasing dyspnea on exertion. She has a history of coronary artery disease status post CABG, hypertension, type 2 diabetes. Initial troponin negative at 0.01. EKG showed normal sinus rhythm, no ST elevations or depressions, no changes from previous EKG in September 2015. Continuous child monitor Serial troponins for trend Echocardiogram Cardiology consult, spoke with Dr. An (3) COPD (chronic obstructive pulmonary disease) Current Visit: No Status: Chronic Assessment and plan: 09/08/2016 stable and will continue same treatment. 09/07/16 Continue current treatment 09/06/16 Patient with diagnosis of COPD, wears 2 L of oxygen at home. Reporting increased shortness of breath over the last several months. Reports dry cough. DuoNeb treatments 4 times a day Albuterol nebulizer every 2 hours when necessary Titrate oxygen to maintain oxygen saturation greater than 90%. Qualifiers: COPD type: chronic bronchitis Chronic bronchitis type: unspecified Qualified Code(s): J42 - Unspecified chronic bronchitis - Subjective Interval history: seen and examined denies chest pain completed day 1 of 2 stress test - Constitutional Vitals: Temp Pulse Resp BP Pulse Ox 97.4 F L 62 16 123/67 949 H 09/08/16 15:16 09/08/16 15:16 09/08/16 16:53 09/08/16 15:16 09/08/16 16:53 General appearance: Present: A&O X 3, morbidly obese, pleasant, no acute distress - Head Head exam: Present: atraumatic, normocephalic - Eye Eye exam: Present: PERRL, conjuntiva pink, sclera anicteric Pupils: Present: PERRL - Neck Neck exam general surgery: Present: supple, trachea midline. Absent: lymphadenopathy - Respiratory Respiratory exam: Present: CTAB. Absent: accessory muscle use, rales, rhonchi, wheezes - Cardiovascular Cardiovascular exam: Present: RRR, +S1, +S2. Absent: diastolic murmur, gallop, rubs, systolic murmur - GI/Abdominal GI/Abdominal exam: Present: normal bowel sounds, soft, no peritoneal signs. Absent: distended, tenderness - Extremities Exam Extremities exam: Present: warm, radial pulses palpable and symetrical. Absent : calf tenderness, cyanotic, pedal edema - Neurological Exam Neurological exam: Present: CN II-XII intact, oriented X3, no focal deficits. Absent: pronater drift, facial droop, speech deficit - Skin Skin exam: Present: dry, intact Internal Medicine: Result - Labs CBC & Chem 7: 09/07/16 06:08 09/07/16 06:08 - VTE Documentation of Mechanical Device: Intermittent pneumatic compression device Consult Discharge Plan - Plan Referrals: Carroll Shipman MD [Primary Care Provider] - 09/17/16 3:00 pm (Please follow up as schedule...)
[2016-09-08] MEDS: Insulin DETEMIR 100 UNIT/ML X5UNITS SQ SCH (21:15)
[2016-09-09] MEDS: Ipratropium/Albuterol Neb 3 ML IH SCH ×2 (04:43→09:28)
[2016-09-09] MEDS: *HR* Enoxaparin 40 MG/0.4 ML SYRINGE SQ SCH (06:41)
[2016-09-09] MEDS: Insulin LISPRO 300 UNITS/3 ML VIAL SQ SCH ×2 (09:03→12:24)
[2016-09-09] MEDS: Ranolazine 500 MG TAB.ER.12H PO SCH (09:46)
[2016-09-09] MEDS: Aspirin Enteric Coated 81 MG Tablet PO SCH (09:46)
[2016-09-09] MEDS: Spironolactone 25 MG TABLET PO SCH (09:46)
[2016-09-09] MEDS: Loratadine 10 MG TABLET PO SCH (09:46)
[2016-09-09] MEDS: Furosemide 40 MG/4 ML VIAL IVP SCH (09:47)
[2016-09-09 11:40] VITALS: BP 141/83
--- NOTE | 2016-09-09 11:55 | Nuclear Medicine Stress Report ---
Regadenoson Nuclear 2 day Name: Lisa Yuen Date of Study: 09/08/2016 Date: 1950 Ht: 61.0 in Medical Record#: [id number] Age: 65 Wt: 286.0 lb Gender: Female Order #: [id number] Location: [facility] Room: [facility] Supervising Provider: Christopher Paul CNP Reading Physician: Asael An DO, FACJewell, PETER CHEUNG Ordering Physician: Chaitanya Chairez MD Primary Care Physician: Carroll Shipman MD Stress Technologist: Fartun Ricardo, COURT ASSISTANT, CCT, CPFT [facility] Staff: Rigo Beverly Indications: Chest Pain Impression: Pharmacologic stress ECG is non-diagnostic due to baseline non-specific ST and T changes and submaximal HR. Gated EF = 64%. Perfusion imaging was negative for ischemia or infarct. History: Hypertension Diabetes Hypercholesteremia History of Coronary Artery Bypass Surgery Stress Test Summary: Stress Test Type: Pharmacologic Regadenoson 0.4mg/5ml given IV Baseline Information: Initial Heart Rate: 68 Blood Pressure: 140/90 Stress Information: Stress Time: 4 min sec Test Terminated Due to (primary): As per protocol Maximum Blood Pressure: 136/84 Maximum Heart Rate: 79 Percent Maximum Heart Rate Achieved: 52 Double Product: 10012 METS Reached: 1 Symptoms: Shortness of breath, Nausea Nuclear Summary: SPECT myocardial perfusion imaging using Tc99m Sestamibi given intravenously was performed at rest and following cardiac stress testing. The resting images were obtained following initial dose of 34.7 mCi. Following stress an additional dose of 32.4 mCi was given at peak exercise or 30 seconds post regadenoson infusion. Medication Given: Time Medication Dose Units Route Findings: Stress Note * Resting ECG demonstrated normal sinus rhythm with nonspecific ST and T changes. * No baseline arrhythmias were noted. * Pharmacologic stress ECG is non-diagnostic for ischemia due to baseline non-specific ST and T changes and submaximal HR. * No arrhythmias were noted during stress. * Patient had no chest pain during stress. Hemodynamic responses * Normal hemodynamic responses to pharmacologic stress. Study Quality * Study quality is average. Gated EF % * Gated EF = 64%. Left Ventricle * The left ventricle is not dilated. LVEDV = 109 mL. NORMALS * Normal wall motion. * Normal segmental perfusion in rest. * Normal segmental perfusion in stress. TID * No evidence of transient ischemic dilatation. TID ratio = 0.93. Lung Uptake * There is no evidence of increase lung uptake. Updated by Asael An DO, FACJewell, JONATAN, PETER on 09/09/2016 11:49:24 AM electronically signed on 09/09/2016 11:51:06 AM with status of Final
--- NOTE | 2016-09-09 12:51 | Discharge Summary ---
Date of Encounter: 09/09/16 Time of Encounter: 12:48 - Discharge Diagnosis (1) Acute exacerbation of CHF (congestive heart failure) Priority: Primary Status: Acute Qualifiers: Congestive heart failure type: unspecified congestive heart failure type Qualified Code(s): I50.9 - Heart failure, unspecified (2) Chest pain, rule out acute myocardial infarction Priority: Primary Status: Acute (3) COPD (chronic obstructive pulmonary disease) Priority: Secondary Status: Chronic Qualifiers: COPD type: chronic bronchitis Chronic bronchitis type: unspecified Qualified Code(s): J42 - Unspecified chronic bronchitis (4) History of coronary artery bypass graft Priority: Secondary Status: Chronic (5) Type 2 diabetes mellitus Priority: Secondary Status: Chronic Qualifiers: Diabetes mellitus complication status: without complication Diabetes mellitus bed bug exterminator insulin use: with bed bug exterminator use Qualified Code(s): E11.9 - Type 2 diabetes mellitus without complications; Z79.4 - intermediate frame tender (current) use of insulin - Discharge Medications Home Medications: Allopurinol [Zyloprim] 300 mg PO DAILY 03/31/15 [History] Aspirin [Adult Low Dose Aspirin EC] 81 mg PO DAILY 03/31/15 [History] Atenolol [Tenormin] 100 mg PO DAILY 03/31/15 [History] Cetirizine HCl [Zyrtec] 10 mg PO DAILY 03/31/15 [History] Citalopram Hydrobromide [Celexa] 40 mg PO DAILY 03/31/15 [History] Diltiazem HCl [Diltiazem 24Hr Cd] 120 mg PO DAILY 03/31/15 [History] Isosorbide MONOnitrate (24 HR) [Imdur] 30 mg PO DAILY 03/31/15 [History] Metformin HCl [Fortamet] 1,000 mg PO BID 03/31/15 [History] Omeprazole [PriLOSEC] 40 mg PO DAILY 03/31/15 [History] Ranolazine [Ranexa] 1,000 mg PO BID 03/31/15 [History] SitaGLIPtin [Januvia] 50 mg PO DAILY 03/31/15 [History] Spironolactone [Aldactone] 25 mg PO DAILY 03/31/15 [History] Albuterol Sulfate [Albuterol Inhaler] 2 puff IH Q4HR #1 hfa.aer.ad 10/06/15 [Rx] Atorvastatin [Lipitor] 10 mg PO HS 09/06/16 [History] Ezetimibe [Zetia] 10 mg PO DAILY 09/06/16 [History] Insulin DETEMIR [Levemir] 78 unit SQ HS 09/06/16 [History] Allergies/Adverse Reactions: Allergies ibuprofen Allergy (Mild, Verified 03/31/15 10:28) Hives lisinopril Allergy (Verified 10/05/15 19:59) Hives potassium chloride [From K-Dur] Allergy (Verified 09/06/16 10:30) Difficulty Breathing Procedures/tests Complete & Pending: Procedures Performed prior 72 hours Category Date Time Status NM dahlia perf SPECT multi [NM] Routine Exams 09/07/16 11:25 Taken EV echocardiogram Routine Y 09/06/16 14:11 Completed SP pharm nuclear stress Stat Y 09/08/16 07:30 Completed Date of admission: 09/06/16 13:55 Primary care physician: Carroll Shipman MD Discharging clinician: Chaitanya Chairez - Patient Status Disposition: Home, Self-Care Condition: Good Functional capacity at discharge: independent ambulation Overall status at discharge: patient is progressing back to baseline - Discharge Instructions Follow Up With: Carroll Shipman MD [Primary Care Provider] - 09/17/16 3:00 pm (Please follow up as schedule...) - Diet and Activity Activity: as per physical therapy Diet: diabetic diet Interval History: Ms. Yuen is a 65 year old female with hypertension, type 2 diabetes, COPD, hyperlipidemia, sleep apnea, coronary artery disease status post CABG, who presented to the emergency department at the direction of her flavoring maker today with complaints of chest pain on and off since May. She reports she has episodes of chest pain daily, she describes them as dull and achy and she says she they last a few hours. Her current episode of chest pain started last evening and it has not let up. She also reports increased shortness of breath from her baseline. She does have COPD and wears 2 L of oxygen at home. She notes both her legs and feet have been swelling more than her baseline as well, she is also complaining of a dry cough and some mild nausea. She reports occasional palpitations and occasional lightheadedness as well. She denies any fever, chills, sweats, headache. She denies any dysuria or changes in bowel habits or abdominal pain or vomiting. Evaluation in the emergency department was significant for an elevated BNP of 207 up from her previous normal value of 76 in September 2015. Hospital course: Her Troponin was negative at 0.01, EKG showed normal sinus rhythm no ST elevations or depressions and no changes from previous EKG in September 2015. 3 showed cardiomegaly and pulmonary vascular congestion, mild pulmonary edema, small bilateral pleural effusions. Patient was hospitalized. Serial troponins were done. Serial troponins were negative. She was treated with IV Lasix. she was treated as per CHF protocol, She responded very well to the intravenous Lasix treatment. She was subjected to the new pierced stress test. Nuclear stress test revealed her ejection fraction is around 60%. She does not have any wall motion abnormality. Plan -Patient can go home. -Fluid restriction to 1500 mL per day. -No new medication added. -Patient will see her primary care physician in one to 2 weeks. -Patient will see her cardiology as scheduled. -The time of discharge patient was explained about her diagnosis. All questions answered. - Time Spent with Patient Total time spent providing and/or coordinating discharge services: - Constitutional Vitals: Temp Pulse Resp BP Pulse Ox 97.8 F 62 18 141/83 95 09/09/16 11:35 09/09/16 11:35 09/09/16 11:35 09/09/16 11:35 09/09/16 11:35 General appearance: Present: A&O X 3, morbidly obese, pleasant, no acute distress - VTE Documentation of Mechanical Device: Intermittent pneumatic compression device
== END 2016-09-09 14:35 | disposition home or self-care (01) ==
LOC: EMEROO 09:37 → 2ANU 09:37
PROVIDERS: ADMIT Internal Medicine; ATTEND Internal Medicine

== ENCOUNTER 2017-08-18 15:45 | Inpatient (IN) ==
[~2017-08-18 15:45] MED LIST: *HR* EPINEPHrine 1 MG/10 ML SYRINGE IVP ONE
[2017-08-18] MEDS ORDERED: 0.9 % Sodium Chloride 1,000 ML IVC ONE ×2 (15:59→16:14)
[2017-08-18] MEDS ORDERED: Ondansetron 4 MG/2 ML VIAL ONE (16:00)
[2017-08-18] MEDS ORDERED: *HR* FentaNYL (PF) 100 MCG/2 ML VIAL ONE (16:00)
[2017-08-18] MEDS ORDERED: Ondansetron 4 MG/2 ML VIAL IVP ONE ×2 (16:01→16:29)
[2017-08-18] MEDS ORDERED: *HR* FentaNYL (PF) 100 MCG/2 ML VIAL IVP ONE (16:01)
--- NOTE | 2017-08-18 16:01 | Emergency Department Note ---
START Narrative - START START: I examined this patient and my medical decision-making was reviewed with the emergency medicine resident. I agree with the documented findings, disposition and treatment plan as described except to the extent set forth below. Patient seen with emergency medicine resident Dr. LEXY KIM, Please see a copy of his note for details of the H&P, ED evaluation, management and disposition. I have independently evaluated the patient and confirmed appropriate portions of the history and physical exam. Briefly: This 66-year-old female history of cholecystectomy distant past 1 month of increasing bilateral upper quadrant abdominal pain with distention nausea denies vomiting fever chills or chest pain. Patient came by EMS because he got much worse today. She is distended with guarding but no rigidity or rebound. Slightly decreased bowel sounds. But obese body habitus makes the exam difficult. Patient getting IV fentanyl and Zofran for pain and nausea. Patient getting screening labs and abdominopelvic CT.
[2017-08-18 16:08] LABS: Basophils % 0.3 %; Eosinophils # 0.1 K/mcL (0.0-0.6); Eosinophils % 1.1 %; Hematocrit 37.1 % (35.3-44.9); Hemoglobin 11.4 g/dL (11.5-15.4); Immature Granulocytes % 0.6 % (0-4); Lymphocytes # 2.1 K/mcL (0.6-4.6); Lymphocytes % 18.3 %; Mean Corpuscular HGB Conc 30.7 g/dL (31.6-35.5); Mean Corpuscular Volume 87.7 fL (83.0-100.0); Mean Platelet Volume 10.5 fL (9.4-12.4); Monocytes % 8.5 %; Neutrophils # 8.1 K/mcL (1.6-8.9); Platelet Count 233 K/mcL (140-400); Red Blood Count 4.23 M/mcL (3.82-4.97); Red Cell Distribution Width 16.5 % (11.5-14.5); Segmented Neutrophils % 71.2 %
[2017-08-18 16:15] LABS: INR 1.2; Prothrombin Time 13.1 Seconds (9.4-12.1)
[2017-08-18] MEDS ORDERED: Calcium Gluconate 2,000 MG in 0.9 % Sodium Chloride 50 ML IVPB ONE (16:17)
[2017-08-18] MEDS ORDERED: *HR* Atropine Sulfate 1 MG/10 ML SYRINGE ONE (16:17)
[2017-08-18] MEDS: *HR* Atropine Sulfate 1 MG/10 ML SYRINGE IVP STA ×2 (16:18→16:54)
--- NOTE | 2017-08-18 16:19 | Emergency Department Note ---
Disposition Clinical Impression: Symptomatic bradycardia Acute exacerbation of CHF (congestive heart failure) Qualifiers: Heart failure type: unspecified Qualified Code(s): I50.9 - Heart failure, unspecified Abdominal pain Qualifiers: Abdominal location: epigastric Qualified Code(s): R10.13 - Epigastric pain Disposition: Admitted As Inpatient Condition: Fair Referrals: Carroll Shipman MD [Primary Care Provider] - Forms: ED Satisfaction Letter, Work/School Release Time of Disposition: 18:40 Abdominal Pain HPI - General Chief Complaint: ED Abdominal Pain Stated Complaint: abd pain/ N/V Time Seen by Provider: 08/18/17 15:47 Source: patient, EMS Mode of arrival: EMS Limitations: no limitations Nursing Notes Reviewed: Yes Vital Signs Reviewed: Yes - History of Present Illness HPI Narrative: 66-year-old female history of CABG, hypertension, hyperlipidemia, diabetes, presents with severe epigastric pain, some shortness of breath. Patient states been having symptoms for several weeks but they are worse today. She was brought in by EMS, flexion abdomen, EMS stated that she was hypertensive with a low heart rate, the patient does endorse taking atenolol, she denies fever or chills, productive cough, congestion. Patient states she has had abdominal pain with some nausea but no emesis. She denies history of previous aortic aneurysm or dissection. Patient denies hematochezia or melena. States her pain is 8 out of 10, crampy achy in her epigastrium. Pt Subjective Complaint: abdominal pain Onset (ago): week(s) Consistency: intermittent Location: epigastric Pain Severity: moderate Pain Scale: 8 Quality: cramping, aching Radiation: none Improves with: nothing Worsens with: nothing Associated symptoms: Reports: nausea. Denies: vomiting, diarrhea, fever, chills Treatments prior to arrival: none - Related Data Home Medications Medication Instructions Recorded Confirmed Allopurinol [Zyloprim] 300 mg PO DAILY 03/31/15 09/06/16 Aspirin [Adult Low Dose Aspirin EC] 81 mg PO DAILY 03/31/15 09/06/16 Atenolol [Tenormin] 100 mg PO DAILY 03/31/15 09/06/16 Cetirizine HCl [Zyrtec] 10 mg PO DAILY 03/31/15 09/06/16 Citalopram Hydrobromide [Celexa] 40 mg PO DAILY 03/31/15 09/06/16 Diltiazem HCl [Diltiazem 24Hr Cd] 120 mg PO DAILY 03/31/15 09/06/16 Isosorbide MONOnitrate (24 HR) 30 mg PO DAILY 03/31/15 09/06/16 [Imdur] Metformin HCl [Fortamet] 1,000 mg PO BID 03/31/15 09/06/16 Omeprazole [PriLOSEC] 40 mg PO DAILY 03/31/15 09/06/16 Ranolazine [Ranexa] 1,000 mg PO BID 03/31/15 09/06/16 SitaGLIPtin [Januvia] 50 mg PO DAILY 03/31/15 09/06/16 Spironolactone [Aldactone] 25 mg PO DAILY 03/31/15 09/06/16 Atorvastatin [Lipitor] 10 mg PO HS 09/06/16 09/06/16 Ezetimibe [Zetia] 10 mg PO DAILY 09/06/16 09/06/16 Insulin DETEMIR [Levemir] 78 unit SQ HS 09/06/16 09/06/16 Previous Rx's Medication Instructions Recorded Albuterol Sulfate [Albuterol 2 puff IH Q4HR #1 hfa.aer.ad 10/06/15 Inhaler] Allergies Allergy/AdvReac Type Severity Reaction Status Date / Time potassium chloride Allergy Difficulty Verified 09/06/16 10:30 [From K-Dur] Breathing ibuprofen AdvReac Mild Hives Verified 08/18/17 15:54 lisinopril AdvReac Hives Verified 08/18/17 15:54 All systems ED: reviewed and negative except as stated. Review of Systems: As Per HPI Constitutional: Denies: fever, chills Eyes: Denies: eye pain ENT ED: Denies: ear pain Cardiovascular: Denies: chest pain Respiratory: Denies: cough, dyspnea Gastrointestinal: Reports: as per HPI, abdominal pain, nausea, vomiting. Denies : diarrhea, hematemesis, hematochezia Genitourinary: Reports: urgency Musculoskeletal: Denies: back pain Integumentary: Denies: rash Abdominal Pain PMH - Past Medical History Medical history: Reports: COPD, coronary artery disease, diabetes, hyperlipidemia, hypertension Female Surgical History: Reports: angioplasty/stent, cholecystectomy, coronary bypass (CABG), herniorrhaphy Psychiatric history: Reports: anxiety, depression - Social History Smoking status: Never smoker Alcohol use: Reports: none Drug use: Reports: none Physical Exam Constitutional: Middle-aged female appears in mild to moderate distress, clutching her abdomen, bradycardic and hypotense HEENT: NCAT, sclera anicteric Neck: normal inspection, neck is supple, trachea midline Resp: diminished at the bases bilaterally secondary to habitus CV: Bradycardia appears sinus, GI: normal inspection, Soft, moderate tenderness to palpation epigastrium, mildly obese, Back: normal inspection, negative CVA bilaterally, no tenderness to palpation Neuro: A&O3, no gross motor or sensory deficits bilaterally MSK: normal inspection, bilateral UE and LE with normal ROM Skin: No rashes, skin warm, dry, intact - General Limitations: no limitations General appearance: alert, in distress Course Course Narrative: 58-year-old female with epigastric pain, patient is a history of CABG, concerning for possible anginal quibbling, the patient was given aspirin, basic lab work including CT angiogram chest abdomen pelvis, as she is bradycardic and appeared symptomatically with hypotension, placed immediately on defibrillator pads if needed, she was placed on the monitor or EKG shows possible sinus bradycardia with a porsche rhythm, no evidence of third degree heart block, the patient has T waves on her peripatologist revealed fluid resuscitate her, she also appears to be somewhat volume overloaded with history of CHF, her exam is limited secondary to bilateral large family swelling, her abdomen is moderately tender to palpation. - Reevaluation(s) Reevaluation #1: Did administer 0.5 atropine given hypertension bradycardia, the patient also got calcium chloride to treat possible beta kendrick toxicity as she is on atenolol, patient's heart rate has improved, the patient remains mildly bradycardic, however she is less hypotensive after 2 L of fluid, her lab work and imaging was mostly unremarkable, suggestive of CHF exacerbation, symptoms not bradycardia she is admitted to [facility]. Time: 18:39 Vital Signs Temperature 97.4 F L 08/18/17 15:46 Pulse Rate 48 08/18/17 15:46 Respiratory Rate 15 08/18/17 15:46 Blood Pressure 99/60 08/18/17 15:46 O2 Sat by Pulse Oximetry 95 08/18/17 15:46 Temperature 97.4 F L 08/18/17 15:46 Pulse Rate 46 08/18/17 18:20 Respiratory Rate 18 08/18/17 18:20 Blood Pressure 97/58 08/18/17 18:20 O2 Sat by Pulse Oximetry 95 08/18/17 18:20 Oxygen Delivery Oxygen Delivery Simple Mask Abdominal Pain - Differential Diagnosis Differential Diagnosis: Likely: acute appendicitis, constipation, colonic obstruction, diverticulitis, diverticulosis, gastroenteritis - Medical Records Medical records reviewed: Yes I reviewed the patient's medical records. - Lab Data Lab results reviewed: Yes I reviewed the patient's lab results. Result diagrams: 08/18/17 15:22 08/18/17 15:22 Lab Results 08/18/17 08/18/17 08/18/17 Range/Units 15:22 15:22 15:22 WBC 11.4 H (4.3-11.1) K/mcL RBC 4.23 (3.82-4.97) M/mcL Hgb 11.4 L (11.5-15.4) g/dL Hct 37.1 (35.3-44.9) % MCV 87.7 (83.0-100.0) fL MCH 27.0 L (28.0-33.3) pg MCHC 30.7 L (31.6-35.5) g/dL RDW 16.5 H (11.5-14.5) % Plt Count 233 (140-400) K/mcL MPV 10.5 (9.4-12.4) fL Immature Gran % 0.6 (0-4) % Seg Neutrophils % 71.2 % Lymphocytes % 18.3 % Monocytes % 8.5 % Eosinophils % 1.1 % Basophils % 0.3 % Neutrophils # 8.1 (1.6-8.9) K/mcL Lymphocytes # 2.1 (0.6-4.6) K/mcL Monocytes # 1.0 (0.0-1.3) K/mcL Eosinophils # 0.1 (0.0-0.6) K/mcL Basophils # 0.0 (0.0-0.2) K/mcL PT 13.1 H (9.4-12.1) Seconds INR 1.2 Sodium 139 (136-145) mEq/L Potassium 5.1 (3.5-5.1) mEq/L Chloride 106 (98-107) mEq/L Carbon Dioxide 21 L (23-29) mEq/L BUN 28 H (8-23) mg/dL Creatinine 1.31 H (0.60-1.20) mg/dL Est GFR ( Amer) 49 L (> 60) Est GFR (Non-Af Amer) 40 L (> 60) BUN/Creatinine Ratio 21 (6-26) Glucose 248 H (70-105) mg/dL Calculated Osmolality 302 H (280-300) Lactic Acid (0.5-2.2) mmol/L Calcium 8.8 (8.6-10.3) mg/dL Total Bilirubin 0.5 (0.3-1.0) mg/dL Direct Bilirubin 0.1 (0.0-0.2) mg/dL Indirect Bilirubin 0.4 (0.0-1.2) mg/dL AST 16 (13-39) Units/L ALT 11 (7-52) Units/L Alkaline Phosphatase 105 H (34-104) Units/L Troponin I (< 0.04) ng/mL Serum Total Protein 6.6 (6.4-8.9) g/dL Albumin 3.4 L (3.5-5.7) g/dL Globulin 3.2 (2.4-3.5) g/dL Albumin/Globulin Ratio 1.1 (1.1-2.2) Lipase 31 (11-82) Units/L 18 08/18/17 Range/Units 15:22 16:52 WBC (4.3-11.1) K/mcL RBC (3.82-4.97) M/mcL Hgb (11.5-15.4) g/dL Hct (35.3-44.9) % MCV (83.0-100.0) fL MCH (28.0-33.3) pg MCHC (31.6-35.5) g/dL RDW (11.5-14.5) % Plt Count (140-400) K/mcL MPV (9.4-12.4) fL Immature Gran % (0-4) % Seg Neutrophils % % Lymphocytes % % Monocytes % % Eosinophils % % Basophils % % Neutrophils # (1.6-8.9) K/mcL Lymphocytes # (0.6-4.6) K/mcL Monocytes # (0.0-1.3) K/mcL Eosinophils # (0.0-0.6) K/mcL Basophils # (0.0-0.2) K/mcL PT (9.4-12.1) Seconds INR Sodium (136-145) mEq/L Potassium (3.5-5.1) mEq/L Chloride (98-107) mEq/L Carbon Dioxide (23-29) mEq/L BUN (8-23) mg/dL Creatinine (0.60-1.20) mg/dL Est GFR ( Amer) (> 60) Est GFR (Non-Af Amer) (> 60) BUN/Creatinine Ratio (6-26) Glucose (70-105) mg/dL Calculated Osmolality (280-300) Lactic Acid 2.9 H (0.5-2.2) mmol/L Calcium (8.6-10.3) mg/dL Total Bilirubin (0.3-1.0) mg/dL Direct Bilirubin (0.0-0.2) mg/dL Indirect Bilirubin (0.0-1.2) mg/dL AST (13-39) Units/L ALT (7-52) Units/L Alkaline Phosphatase (34-104) Units/L Troponin I < 0.03 (< 0.04) ng/mL Serum Total Protein (6.4-8.9) g/dL Albumin (3.5-5.7) g/dL Globulin (2.4-3.5) g/dL Albumin/Globulin Ratio (1.1-2.2) Lipase (11-82) Units/L - Radiology Data Radiology results reviewed: Yes I reviewed the patient's radiology results. Chest X-Ray 08/18/17 16:01 IMPRESSION: No acute process. D/ / Marino Flores MD / Marino Flores MD Interpreting Provider: Marino Flores MD Abdomen/Pelvis CTA 08/18/17 16:17 IMPRESSION: No evidence of aortic aneurysm or dissection. No intramural hematoma. Atherosclerotic disease involving the aorta and major aortic branches. Cardiomegaly without pericardial effusion. Interlobular septal thickening and ground-glass opacities suggestive of component of mild interstitial edema. Incompletely characterized 15 mm right thyroid nodule. Recommend follow-up thyroid ultrasound nonemergently. Unchanged renal calculus within the left renal pelvis with mild adjacent inflammation. The left kidney is smaller than the right. There is suggestion of renal cortical scarring involving the left kidney. Mild periportal edema with a trace amount of perihepatic free fluid. This is nonspecific but may be seen in setting of congestive heart failure. Correlation with the possibility of hepatitis should also be obtained. Small amount of hypodensity within canal. Recommend further evaluation with pelvic ultrasound, if not previously performed. This is an abnormal finding in a postmenopausal female. Unchanged ventral abdominal wall hernia at the level of the umbilicus with herniation of the adjacent small bowel loop. Unchanged fat containing hernia more superiorly at the level of the liver. No evidence of inflammation involving the herniated bowel loop or mechanical bowel obstruction. No convincing evidence of acute findings within abdomen or pelvis. D/ / 08/18/2017 17:52:52 Nadeem Pickard MD / aidee Interpreting Provider: Nadeem Pickard MD Chest CTA 08/18/17 16:17 IMPRESSION: No evidence of aortic aneurysm or dissection. No intramural hematoma. Atherosclerotic disease involving the aorta and major aortic branches. Cardiomegaly without pericardial effusion. Interlobular septal thickening and ground-glass opacities suggestive of component of mild interstitial edema. Incompletely characterized 15 mm right thyroid nodule. Recommend follow-up thyroid ultrasound nonemergently. Unchanged renal calculus within the left renal pelvis with mild adjacent inflammation. The left kidney is smaller than the right. There is suggestion of renal cortical scarring involving the left kidney. Mild periportal edema with a trace amount of perihepatic free fluid. This is nonspecific but may be seen in setting of congestive heart failure. Correlation with the possibility of hepatitis should also be obtained. Small amount of hypodensity within canal. Recommend further evaluation with pelvic ultrasound, if not previously performed. This is an abnormal finding in a postmenopausal female. Unchanged ventral abdominal wall hernia at the level of the umbilicus with herniation of the adjacent small bowel loop. Unchanged fat containing hernia more superiorly at the level of the liver. No evidence of inflammation involving the herniated bowel loop or mechanical bowel obstruction. No convincing evidence of acute findings within abdomen or pelvis. D/ / 08/18/2017 17:52:52 Nadeem Pickard MD / aidee Interpreting Provider: Nadeem Pickard MD - EKG Data EKG attestation: Yes I reviewed and interpreted this EKG. EKG shows normal: sinus rhythm Rate: normal (43 bpm QRS 74 QTc is [address] segment changes, flattened T waves in V4 V5 and V6) Interpretation: nonspecific ST-T wave changes
[2017-08-18 16:29] LABS: Albumin 3.4 g/dL (3.5-5.7); Albumin/Globulin Ratio 1.1 (1.1-2.2); Bilirubin,Direct 0.1 mg/dL (0.0-0.2); Bilirubin,Indirect 0.4 mg/dL (0.0-1.2); Bilirubin,Total 0.5 mg/dL (0.3-1.0); Calcium 8.8 mg/dL (8.6-10.3); Globulin 3.2 g/dL (2.4-3.5); Potassium 5.1 mEq/L (3.5-5.1); Total Protein 6.6 g/dL (6.4-8.9)
[2017-08-18] MEDS ORDERED: Aspirin 325 MG TABLET PO ONE (18:17)
[2017-08-18] MEDS ORDERED: Metoclopramide 10 MG/2 ML VIAL IVP ONE (18:21)
[2017-08-18 18:41] LABS: Bilirubin,Urine Negative (Negative); Blood,Urine Negative (Negative); Clarity,Urine Clear (Clear); Color,Urine Yellow (Yellow); Glucose,Urine (UA) Normal (Normal); Ketones,Urine Negative (Negative); Leukocyte Esterase,Urine Small (Negative); Nitrite,Urine Negative (Negative); Protein,Urine Negative (Neg-Trace); Specific Gravity,Urine > 1.030 (1.010-1.025); Urobilinogen,Urine Normal (Normal)
[2017-08-18 18:42] LABS: Bacteria,Urine None Seen per hpf (None-Few); Hyaline Casts,Urine Few per lpf (None-Few); RBC,Urine 0-3 per hpf (0-3); Squamous Epithelial Cell,Urine Many per lpf (None-Few); WBC,Urine 30-50 per hpf (0-3)
[2017-08-18] MEDS ORDERED: *HR* Promethazine 25 MG/ML VIAL IVP ONE (19:45)
[2017-08-18] MEDS ORDERED: Hyoscyamine 0.5 MG/ML MLS IVP ONE (19:45)
[2017-08-18 21:12] LABS: ABG Base Excess -7 mEq/L (-2 to 3); ABG HCO3 20 mEq/L (21-27); ABG Oxygen Saturation 98 % (95-98); ABG PCO2 42 mmHg (35-45); ABG PH 7.28 pH Units (7.32-7.45); ABG PO2 110 mmHg (85-104); ABG TCO2 21 mEq/L (20-26)
[2017-08-18] MEDS ORDERED: Naloxone 0.4 MG/ML INJ IVP PRN (21:27)
[2017-08-18] MEDS ORDERED: 0.9 % Sodium Chloride 1,000 ML IVC SCH (21:30)
--- NOTE | 2017-08-18 21:50 | Event Note ---
Date of Encounter: 08/18/17 Time of Encounter: 21:48 I have personally examined this patient in 2NE18 where patient's son was at bedside. We discussed the CODE STATUS with the patient herself. business operations coordinator was present along with me. Patient is alert and oriented 3. Patient said, she does not want intubation/chest compression. Patient's son was also present in the room at the same time. He verbalized understanding of the meaning of CODE STATUS.
[2017-08-18] MEDS: methylPREDNISolone 125 MG/2 ML VIAL IVP SCH (21:54)
[2017-08-18] MEDS: Levofloxacin 750 MG/150 ML 750 MG/150 ML BAG IVPB SCH (21:55)
[2017-08-18] MEDS: Ipratropium/Albuterol Neb 3 ML IH SCH (22:07)
[2017-08-19] MEDS: methylPREDNISolone 125 MG/2 ML VIAL IVP SCH ×5 (00:32→23:42)
[2017-08-19] MEDS: Ipratropium/Albuterol Neb 3 ML IH SCH ×7 (00:34→23:54)
[2017-08-19] MEDS: *HR* Heparin 5,000 UNIT/ML VIAL SQ SCH ×4 (01:46→23:44)
--- NOTE | 2017-08-19 01:55 | Internal Med History&Physical ---
<Isabel Siegel - Last Filed: 08/19/17 02:11> Date of Encounter: 08/19/17 Time of Encounter: 01:02 Assessment and Plan (1) Symptomatic bradycardia Current visit: Yes Status: Acute (2) Acute exacerbation of CHF (congestive heart failure) Current visit: Yes Status: Acute Qualifiers: Heart failure type: unspecified Qualified Code(s): I50.9 - Heart failure, unspecified (3) Abdominal pain Current visit: Yes Status: Acute Qualifiers: Abdominal location: epigastric Qualified Code(s): R10.13 - Epigastric pain (4) COPD (chronic obstructive pulmonary disease) Current visit: No Status: Chronic Qualifiers: COPD type: chronic bronchitis Chronic bronchitis type: unspecified Qualified Code(s): J42 - Unspecified chronic bronchitis (5) Type 2 diabetes mellitus Current visit: No Status: Chronic Qualifiers: Diabetes mellitus complication status: without complication Diabetes mellitus chcf insulin use: with intermediate accountant use Qualified Code(s): E11.9 - Type 2 diabetes mellitus without complications; Z79.4 - termination clerk (current) use of insulin; Z79.4 - FPC (current) use of insulin; Z79.4 - FPC ( current) use of insulin; Z79.4 - FPC (current) use of insulin (6) DVT prophylaxis Current visit: No Status: Acute Internal Medicine - H&P: HPI Chief complaint: abdominal pain, short of breath History of present illness: Ms. Yuen is a 66 year old female with PMH of HTN, HLD, CAD, 3V-CABG, CHF, COPD on 2L home oxygen, sleep apnea who presents with c/o severe abdominal pain and shortness of breath. Abdominal pain is a cramping-type and epigastric in location, pt says she's had this type of abdominal pain intermittently for 3 months when exerting herself, but usually goes away on its own. Today, this pain didn't go away on its own and lasted longer (45 minutes) than usual after she got up to use the bathroom. This abdominal pain wasn't worse on inspiration , but caused her to feel more short of breath than she does at baseline. She denies fevers, chills, chest pain, emesis, diarrhea, constipation; she admits to nausea and dry-heaving. Arrived to ED via EMS with pulse 48, BP 99/60, reportedly clutching abdomen in pain. Based on her symptoms and cardiac hx she was given aspirin, basic lab work drawn, and received CTA of chest and abdomen/pelvis. No evidence for 3rd degree heart block and flattened T waves V4-V6 on EKG. Atropine, calcium chloride, and calcium gluconate were given for suspected beta kendrick toxicity. Fluid resuscitation with 2L NS boluses. Pt initially admitted to 2NE, but transferred to after she became less alert with pulse in upper 40's, and BP had dropped to 86/57. Past Med Surg Social Fam HX - Past Medical History Medical history: COPD, coronary artery disease, diabetes, hyperlipidemia, hypertension Psychiatric history: anxiety, depression - Past Surgical History Surgical History: cholecystectomy, coronary bypass (CABG) - Social History Smoking Status: Never smoker Smokeless Tobacco Status: No Alcohol use: none Drug use: none - Family History Mother Living Status: Hx Family Cardiac Disorders: Yes Father Living Status: Hx Family Cardiac Disorders: Yes Internal Medicine - H&P: Meds Allopurinol [Zyloprim] 300 mg PO DAILY 03/31/15 [History] Aspirin [Adult Low Dose Aspirin EC] 81 mg PO DAILY 03/31/15 [History] Atenolol [Tenormin] 100 mg PO DAILY 03/31/15 [History] Cetirizine HCl [Zyrtec] 10 mg PO DAILY 03/31/15 [History] Citalopram Hydrobromide [Celexa] 40 mg PO DAILY 03/31/15 [History] Diltiazem HCl [Diltiazem 24Hr Cd] 120 mg PO DAILY 03/31/15 [History] Isosorbide MONOnitrate (24 HR) [Imdur] 30 mg PO DAILY 03/31/15 [History] Metformin HCl [Fortamet] 1,000 mg PO BID 03/31/15 [History] Omeprazole [PriLOSEC] 40 mg PO DAILY 03/31/15 [History] Ranolazine [Ranexa] 1,000 mg PO BID 03/31/15 [History] SitaGLIPtin [Januvia] 50 mg PO DAILY 03/31/15 [History] Spironolactone [Aldactone] 25 mg PO DAILY 03/31/15 [History] Albuterol Sulfate [Albuterol Inhaler] 2 puff IH Q4HR #1 hfa.aer.ad 10/06/15 [Rx] Atorvastatin [Lipitor] 10 mg PO HS 09/06/16 [History] Ezetimibe [Zetia] 10 mg PO DAILY 09/06/16 [History] Insulin DETEMIR [Levemir] 78 unit SQ HS 09/06/16 [History] 3 Allergy/AdvReac Type Severity Reaction Status Date / Time potassium chloride Allergy Difficulty Verified 09/06/16 10:30 [From K-Dur] Breathing ibuprofen AdvReac Mild Hives Verified 08/18/17 15:54 lisinopril AdvReac Hives Verified 08/18/17 15:54 All Systems PM: A 10-system review of systems was performed and is negative for pertinent findings except as documented above in the HPI. - Constitutional Vitals: Temp Pulse Resp BP Pulse Ox 97.9 F 45 22 120/82 98 08/18/17 22:56 08/18/17 22:56 08/19/17 00:34 08/19/17 00:34 08/19/17 00:34 General appearance: Present: A&O X 3, no acute distress, obese - Head Head exam: Present: atraumatic, normocephalic - Eye Eye exam: Present: EOMI, normal appearance, PERRL - Neck Neck exam general surgery: Present: full ROM, normal inspection, trachea midline - Respiratory Respiratory exam: Present: CTAB (bilateral lung apices). Absent: accessory muscle use, chest wall tenderness, respiratory distress - Cardiovascular Cardiovascular exam: Present: bradycardia, distant heart sounds (auscultation limited by body habitus) Additional comments: regular rhythm - GI/Abdominal GI/Abdominal exam: Present: soft, tenderness (epigastric). Absent: rebound, rigid - Extremities Exam Extremities exam: Present: normal capillary refill, tenderness. Absent: cyanotic, pedal edema Additional comments: 2+ DP pulses, non-pitting LE edema - Neurological Exam Neurological exam: Present: alert, oriented X3, no focal deficits. Absent: facial droop, speech deficit - Skin Skin exam: Present: intact, warm. Absent: erythema Internal Med - H&P Results - Labs CBC & Chem 7: 08/18/17 15:22 08/18/17 15:22 Labs: Cardiac Enzymes 08/18/17 Range/Units 21:54 Troponin I < 0.03 (< 0.04) ng/mL <Chaitanya Chairez P - Last Filed: 08/19/17 06:51> Date of Encounter: 08/19/17 Internal Medicine - H&P: [facility] History of present illness: Ms. Yuen is a 66 year old female All Systems PM: A 10-system review of systems was performed and is negative for pertinent findings except as documented above in the HPI. - Constitutional Vitals: Temp Pulse Resp BP Pulse Ox 97.8 F 53 22 120/68 97 08/19/17 03:10 08/19/17 03:10 08/19/17 03:36 08/19/17 03:36 08/19/17 03:36 Internal Med - H&P Results - Labs CBC & Chem 7: 08/19/17 03:51 08/19/17 03:51 Labs: Short CBC 08/19/17 Range/Units 03:51 WBC 8.4 (4.3-11.1) K/mcL Hgb 11.1 L (11.5-15.4) g/dL Hct 38.0 (35.3-44.9) % Plt Count 204 (140-400) K/mcL Neutrophils # 7.3 (1.6-8.9) K/mcL Cardiac Enzymes 08/18/17 Range/Units 21:54 Troponin I < 0.03 (< 0.04) ng/mL - ABG Interpretation ABG results: 08/19/17 03:40 ABG pH 7.32 ABG pCO2 42 ABG pO2 131 H ABG HCO3 22 ABG Total CO2 23 ABG O2 Saturation 99 H ABG Base Excess -5 L - Attending Attestation I examined this patient and my medical decision-making was reviewed with the Resident Physician. I agree with the documented findings, disposition and treatment plan as described except to the extent set forth below. I have examined this patient myself. 66/female Admitted with hypotension/bradycardia. Received 100 g of fentanyl in the emergency room. Noted that she has a possibility of a pneumonia. Started on IV antibiotics/steroids/and bronchodilators Placed on BiPAP. Clinically improved. We will monitor her very closely. 6.50am Patient says that she has some issues with the medication prescribed by her primary care physician's office. She says this is her third visit in last few months when similar symptoms happen. We need more information from PCPs office regarding medication/refills.
[2017-08-19 03:42] LABS: ABG Base Excess -5 mEq/L (-2 to 3); ABG HCO3 22 mEq/L (21-27); ABG Oxygen Saturation 99 % (95-98); ABG PCO2 42 mmHg (35-45); ABG PH 7.32 pH Units (7.32-7.45); ABG PO2 131 mmHg (85-104); ABG TCO2 23 mEq/L (20-26); Blood Gas PEEP 6 cm H2O
[2017-08-19 04:32] LABS: Basophils % 0.1 %; Hemoglobin 11.1 g/dL (11.5-15.4); Immature Granulocytes % 0.7 % (0-4); Lymphocytes # 0.9 K/mcL (0.6-4.6); Lymphocytes % 11.2 %; Mean Corpuscular HGB Conc 29.2 g/dL (31.6-35.5); Mean Corpuscular Hemoglobin 26.4 pg (28.0-33.3); Mean Corpuscular Volume 90.3 fL (83.0-100.0); Mean Platelet Volume 10.8 fL (9.4-12.4); Monocytes # 0.1 K/mcL (0.0-1.3); Neutrophils # 7.3 K/mcL (1.6-8.9); Platelet Count 204 K/mcL (140-400); Red Blood Count 4.21 M/mcL (3.82-4.97); Red Cell Distribution Width 16.4 % (11.5-14.5)
[2017-08-19 04:41] LABS: Albumin 3.5 g/dL (3.5-5.7); Albumin/Globulin Ratio 1.2 (1.1-2.2); Bilirubin,Total 0.4 mg/dL (0.3-1.0); Calcium 8.9 mg/dL (8.6-10.3); Magnesium 1.5 mg/dL (1.6-2.6); Phosphorous 4.7 mg/dL (2.7-4.5); Potassium 5.9 mEq/L (3.5-5.1); Total Protein 6.5 g/dL (6.4-8.9)
[2017-08-19 04:47] LABS: INR 1.3; Prothrombin Time 13.7 Seconds (9.4-12.1)
[2017-08-19 04:50] LABS: Activated Partial Thrombo Time 29.7 Seconds (26.0-36.0)
[2017-08-19] MEDS: Levofloxacin 750 MG/150 ML 750 MG/150 ML BAG IVPB SCH (08:21)
[2017-08-19] MEDS: Ranolazine 500 MG TAB.ER.12H PO SCH ×2 (08:22→19:52)
[2017-08-19] MEDS: Aspirin Enteric Coated 81 MG Tablet PO SCH (08:22)
[2017-08-19] MEDS: (Ezetimibe [Zetia] 10 MG) PO SCH (08:23)
[2017-08-19] MEDS ORDERED: Spironolactone 25 MG TABLET PO SCH (09:00)
--- NOTE | 2017-08-19 11:51 | Internal Med Progress Note ---
Date of Encounter: 08/19/17 Time of Encounter: 11:45 - Assessment and plan (1) Acute respiratory failure Current Visit: Yes Status: Acute Assessment and plan: Likely acute decompensated heart failure Possibly COPD and pneumonia. Qualifiers: Respiratory failure complication: hypoxia Qualified Code(s): J96.01 - Acute respiratory failure with hypoxia (2) Symptomatic bradycardia Current Visit: Yes Status: Acute Assessment and plan: Listed home medications include: Atenolol and cardizem. She does not take these medications regularly because of finances. These medications are held. IV fluid was given. I will hold IVF and await cardiology recommendations. (3) Acute exacerbation of CHF (congestive heart failure) Current Visit: Yes Status: Acute Assessment and plan: Echocardiogram (08/2016) LVEF 60-65, moderate LV diastolic dysfunction She required 2 L IV fluid in ED because of hypotension. Fluids held right now to prevent further dyspnea. Cardiology consulted, recommendations appreciated in regards to bradycardia with HFpEF exacerbation. Qualifiers: Heart failure type: diastolic Qualified Code(s): I50.33 - Acute on chronic diastolic (congestive) heart failure (4) Abdominal pain Current Visit: Yes Status: Acute Assessment and plan: Likely from edema Qualifiers: Abdominal location: unspecified location Qualified Code(s): R10.9 - Unspecified abdominal pain (5) Abnormal pelvic ultrasound Current Visit: Yes Status: Acute (6) COPD (chronic obstructive pulmonary disease) Current Visit: No Status: Chronic Qualifiers: COPD type: chronic bronchitis Chronic bronchitis type: unspecified Qualified Code(s): J42 - Unspecified chronic bronchitis (7) Type 2 diabetes mellitus Current Visit: No Status: Chronic Assessment and plan: NPO diet Accuchecks Q6H, ISS Qualifiers: Diabetes mellitus complication status: without complication 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 (9) History of coronary artery bypass graft Current Visit: No Status: Chronic Assessment and plan: Heparin Sq Q8H 5,000 units (10) DVT prophylaxis Current Visit: No Status: Acute (11) Acute kidney failure Current Visit: Yes Status: Acute Assessment and plan: Unsure if this is related to transient hypperfusion from hypotensive episodes or related to other etiology. Will recheck. Last creatinine was 4 months ago at 0.98. Qualifiers: Acute renal failure type: unspecified Qualified Code(s): N17.9 - Acute kidney failure, unspecified - Subjective Interval history: Patient presented with abdominal and SOB. Patient arrived to EMS with HR 48 bpm and BP low at 99/60. She had CTA of abdomen/pelvis that did not show PE or AAA. She had EKG that had flattened T-waves in V4-6. She was administered Atropine, CaCl, and Ca gluconate. BP was as low as 86/57 overnight. She was given 2 L Iv fluid boluses. Currently patient still SOB and having abdominal pain, nausea, orthopnea. Complaining of thirst. Denies Chest pain, fevers. - Constitutional Vitals: Temp Pulse Resp BP Pulse Ox 99.7 F H 73 20 124/67 92 08/19/17 11:11 08/19/17 11:11 08/19/17 11:11 08/19/17 11:11 08/19/17 11:11 General appearance: Present: A&O X 3, no acute distress, obese Exam: - Head Head exam: Present: atraumatic, normocephalic - Eye Eye exam: Present: EOMI, normal appearance, PERRL - Neck Neck exam general surgery: Present: full ROM, normal inspection, trachea midline - Respiratory Respiratory exam: Present: CTAB (bilateral lung apices). Absent: accessory muscle use, chest wall tenderness, respiratory distress - Cardiovascular Cardiovascular exam: Present: bradycardia, distant heart sounds (auscultation limited by body habitus) Additional comments: regular rhythm - GI/Abdominal GI/Abdominal exam: Present: soft, tenderness (epigastric). Absent: rebound, rigid - Extremities Exam Extremities exam: Present: normal capillary refill, tenderness. Absent: cyanotic, pedal edema Additional comments: 2+ DP pulses, non-pitting LE edema - Neurological Exam Neurological exam: Present: alert, oriented X3, no focal deficits. Absent: facial droop, speech deficit - Skin Skin exam: Present: intact, warm. Absent: erythema Internal Medicine: Result - Labs CBC & Chem 7: 08/19/17 03:51 08/19/17 03:51 Labs: Short CBC 08/19/17 Range/Units 03:51 WBC 8.4 (4.3-11.1) K/mcL Hgb 11.1 L (11.5-15.4) g/dL Hct 38.0 (35.3-44.9) % Plt Count 204 (140-400) K/mcL Neutrophils # 7.3 (1.6-8.9) K/mcL BMP 08/19/17 03:51 Sodium 141 Potassium 5.9 H Chloride 111 H Carbon Dioxide 19 L BUN 36 H Creatinine 1.49 H Glucose 235 H Calcium 8.9 Cardiac Enzymes 08/18/17 08/19/17 08/19/17 Range/Units 21:54 03:51 09:59 Troponin I < 0.03 < 0.03 < 0.03 (< 0.04) ng/mL Liver Function 08/19/17 Range/Units 03:51 Total Bilirubin 0.4 (0.3-1.0) mg/dL AST 11 L (13-39) Units/L ALT 11 (7-52) Units/L Alkaline Phosphatase 100 (34-104) Units/L Albumin 3.5 (3.5-5.7) g/dL - ABG Interpretation ABG results: ABG ABG pH 7.32 pH Units (7.32-7.45) 08/19/17 03:40 ABG pCO2 42 mmHg (35-45) 08/19/17 03:40 ABG pO2 131 mmHg (85-104) H 08/19/17 03:40 ABG O2 Saturation 99 % (95-98) H 08/19/17 03:40 PT/INR, D-dimer PT 13.7 Seconds (9.4-12.1) H 08/19/17 03:51 Consult Discharge Plan - Plan Referrals: Carroll Shipman MD [Primary Care Provider] -
[2017-08-19] MEDS ORDERED: Furosemide 40 MG/4 ML VIAL IVP ONE (12:33)
--- NOTE | 2017-08-19 12:41 | Cardiology Consult Note ---
Date of Encounter: 08/19/17 Time of Encounter: 12:27 Assessment and Plan (1) Bradycardia Current Visit: Yes Status: Acute Pt was on home BB and CCB--Atenolol 100mg daily and Cardizem CD 120mg daily, currently being held. HR 40s on presentation, was given atropine, calcium chloride and calcium gluconate. EKG reviewed--difficult to interpret underlying rhythm due to low voltage/P waves difficult to see. HR improved, 70s at bedside, appears regular, but P waves still difficult to see. 12 hr tele AVG HR 63, lowest HR 44bpm, nocturnal. K is 5.9 today--recommend correctly per primary team, as this can contribute to bradycardia/EKG abnormalities. Mag 1.5--replace. Check TSH. Recheck EKG in AM once potassium is corrected. TTE 09/06/16 EF 60-65%, mild-moderate cLVH, moderate LVDD, mild . Stress test 08/2016 negative for ischemia or infarct. [facility] 11/2014 3 of 3 patent bypass grafts, severe [place] disease. Recheck TTE. Continue to allow BB washout, correct hyperkalemia and continue to monitor on telemetry overnight. Await echo results as well. (2) Abdominal pain Current Visit: Yes Status: Acute Pt reports intermittent epigastric pain for months. Reports abdominal pain as prior anginal equivalent. Troponin negative x 4. No ischemic EKG changes. ST flattening present on prior EKGs as well. Stress test 08/2016 negative for ischemia or infarct. [facility] 11/2014 severe [place] disease, but 3/3 patent bypass grafts. Echo to evaluate structure and function. Qualifiers: Abdominal location: epigastric Qualified Code(s): R10.13 - Epigastric pain (3) CAD (coronary artery disease) Current Visit: Yes Status: Acute Hx of 3 vessel CABG, 3/3 patent grafts on [facility] 2014. Continue ASA, Statin. No BB due to bradycardia. Qualifiers: Coronary Disease-Associated Artery/Lesion type: [place] artery [place] vs. transplanted heart: [place] heart Associated angina: angina presence unspecified Qualified Code(s): I25.10 - Atherosclerotic heart disease of [place] coronary artery without angina pectoris (4) Diastolic dysfunction Current Visit: Yes Status: Chronic Moderate diastolic dysfunction on TTE 08/2016. CXR negative. Chest CT component of mild interstitial edema. Chronic LE edema, unchanged from baseline. Does report worsening dyspnea. BNP 191 yesterday, 433 today, likely increased due to 2L fluid bolus given yesterday. Strict I/Os, Na and fluid restriction, daily weights. Repeat TTE. Discussion w patient/family: The assessment and plan as outlined above was discussed with the patient and/or family members who expressed understanding and agreement. All questions were answered. Thank you for involving us in the care of your patient. Please call with any questions. I will discuss all the above with Dr. An and make changes as necessary. History of Present Illness Consult date: 08/19/17 Requesting physician: Magdalena Ruano Consult reason: bradycardia, CHF Chief complaint: Dyspnea, abdominal pain History of present illness: Ms. Yuen is a 66 year old female with PMH of HTN, HLD, CAD s/p 3V-CABG in the remote past, diastolic CHF, COPD on 2L home oxygen, sleep apnea who presents with c/o severe abdominal pain and shortness of breath. Abdominal pain is a cramping-type and epigastric in location, pt says she's had this type of abdominal pain intermittently for 3 months, worse when exerting herself, but usually goes away on its own. Yesterday, the pain didn't go away and lasted longer (45 minutes) than usual after she got up to use the bathroom. She admits to nausea and dry-heaving. On arrival to ED via EMS, was reportedly found to have a HR of 48, BP 99/60, reportedly clutching abdomen in pain. Based on her symptoms and cardiac hx she was given aspirin, basic lab work drawn, and received CTA of chest and abdomen/pelvis. Atropine, calcium chloride, and calcium gluconate were given for suspected beta kendrick toxicity. Fluid resuscitation with 2L NS boluses. Pt initially admitted to E, but transferred to after she became less alert with pulse in upper 40's, and BP had dropped to 86/57. Pt was on Atenolol 100mg daily at home and Cardizem CD 120mg daily. These have been held. Of note, pt has REBA creatinine 1.49 and K is currently 5.9. Troponins negative x 4. BNP on admission yesterday 191, 488 today. Pt denies chest pain. Upon further questioning, she does report that abdominal pain is similar to her prior anginal equivalent. Prior CV testing: TTE 09/06/16: LVEF 60-65%, mild-moderate cLVH, moderate LVDD, moderately dilated LA, mild . Nuclear stress test 09/08/16: Gated EF 64%, perfusion imaging negative for ischemic or infarct. [facility] 11/2014: Severe [place] coronary artery disease with 3 out of 3 patent bypass graft. WHELAN to LAD was patent and saphenous vein graft to ramus with sequential to the third marginal was also patent. Past Med Surg Social Fam HX - Past Medical History Medical history: COPD, coronary artery disease, diabetes, hyperlipidemia, hypertension Psychiatric history: anxiety, depression - Past Surgical History Surgical History: cholecystectomy, coronary bypass (CABG) - Social History Smoking Status: Never smoker Smokeless Tobacco Status: No Alcohol use: none Drug use: none - Family History Mother Living Status: Hx Family Cardiac Disorders: Yes Father Living Status: Hx Family Cardiac Disorders: Yes Medications and Allergies Allopurinol [Zyloprim] 300 mg PO DAILY 03/31/15 [History] Aspirin [Adult Low Dose Aspirin EC] 81 mg PO DAILY 03/31/15 [History] Atenolol [Tenormin] 100 mg PO DAILY 03/31/15 [History] Cetirizine HCl [Zyrtec] 10 mg PO DAILY 03/31/15 [History] Citalopram Hydrobromide [Celexa] 40 mg PO DAILY 03/31/15 [History] Diltiazem HCl [Diltiazem 24Hr Cd] 120 mg PO DAILY 03/31/15 [History] Isosorbide MONOnitrate (24 HR) [Imdur] 30 mg PO DAILY 03/31/15 [History] Metformin HCl [Fortamet] 1,000 mg PO BID 03/31/15 [History] Omeprazole [PriLOSEC] 40 mg PO DAILY 03/31/15 [History] Ranolazine [Ranexa] 1,000 mg PO BID 03/31/15 [History] SitaGLIPtin [Januvia] 50 mg PO DAILY 03/31/15 [History] Spironolactone [Aldactone] 25 mg PO DAILY 03/31/15 [History] Albuterol Sulfate [Albuterol Inhaler] 2 puff IH Q4HR #1 hfa.aer.[email or web address] 10/06/15 [Rx] Atorvastatin [Lipitor] 40 mg PO HS 09/06/16 [History] Ezetimibe [Zetia] 10 mg PO DAILY 09/06/16 [History] Buspirone HCl [Buspar] 10 mg PO BID PRN 08/19/17 [History] Furosemide [Lasix] 20 mg PO DAILY 08/19/17 [History] Insulin Degludec [Tresiba Flextouch U-200] 90 units SQ HS 08/19/17 [History] 3 Allergy/AdvReac Type Severity Reaction Status Date / Time potassium chloride Allergy Difficulty Verified 09/06/16 10:30 [From K-Dur] Breathing ibuprofen AdvReac Mild Hives Verified 08/18/17 15:54 lisinopril AdvReac Hives Verified 08/18/17 15:54 All Systems Review: A 10-system review of systems was performed and is negative for pertinent findings except as documented above in the HPI. - Cardiovascular Cardiovascular: as per HPI, dyspnea at rest, dyspnea on exertion, leg edema, orthopnea - Respiratory Respiratory: dyspnea - Gastrointestinal Gastrointestinal: abdominal pain, nausea Physical Examination Vital Signs, Last 4 Hours Temp Pulse Resp BP Pulse Ox 08/19/17 12:26 20 124/67 98 08/19/17 11:11 99.7 F H 73 20 124/67 92 Vital Signs Temp Pulse Resp BP Pulse Ox 08/19/17 12:26 20 124/67 98 08/19/17 11:11 99.7 F H 73 20 124/67 92 08/19/17 07:48 18 93 08/19/17 07:18 99.2 F 68 20 115/55 97 08/19/17 03:36 22 120/68 97 08/19/17 03:10 97.8 F 53 20 120/68 96 08/19/17 00:34 22 120/82 98 08/18/17 23:05 23 128/82 97 08/18/17 22:56 97.9 F 45 23 128/82 99 08/18/17 22:08 28 97 08/18/17 21:08 95 08/18/17 20:31 86/57 08/18/17 20:16 98.0 F 48 20 98/84 24 08/18/17 20:07 20 114/76 08/18/17 18:20 46 18 97/58 95 08/18/17 17:48 44 18 102/66 98 08/18/17 16:55 45 16 117/68 96 08/18/17 16:38 96 08/18/17 16:11 40 16 80/51 97 08/18/17 15:46 97.4 F L 48 15 99/60 95 Intake and Output 08/18/17 08/19/17 08/19/17 23:59 07:59 15:59 Intake Total 1150 / 1150 100 / 100 Balance 1150 / 1150 100 / 100 Intake: IV Fluids 1150 / 1150 100 / 100 0.9 % Sodium Chloride 1,000 ML 1000 / 1000 @ 3750 mls/hr IVC .Q16M ONE Rx# :[id number] Levaquin Premix 750mg/150 mL 150 / 150 750 mg In 150 ml @ 100 mls/hr IVPB DAILY [facility] Rx#:[id number] Zosyn 3.375 GM In 0.9 % Sodium 100 / 100 Chloride 100 ML @ 25 mls/hr IVPB Q8H [facility] Rx#:[id number] Oral 0 / 0 Other: # Voids 0 Weight 134.1 kg 140.4 kg Blood Glucose* 254 343 Patient Weight 08/19/17 23:59 Weight 140.4 kg General: Conversant, No Apparent Distress HEENT: Atraumatic, Normocephaly, Mucus Membranes Moist Neck: Normal carotid pulses Cardiac: Reg Rate and Rhythm, Normal S1 and S2, No Murmur Lungs: Other (diminished) Neuro: Alert and responsive, No focal deficits noted Abdomen: Soft, Non-Tender Skin: No rashes noted on visualized skin Musculoskeletal: No Chest Wall Tenderness Extremities: No Clubbing, No Cyanosis, Other (mild BLE edema) Results 08/19/17 03:51 08/19/17 12:44 Lab Results 08/18/17 08/18/17 08/19/17 21:54 21:54 03:40 WBC RBC Hgb Hct MCV MCH MCHC RDW Plt Count MPV Immature Gran % Seg Neutrophils % Lymphocytes % Monocytes % Eosinophils % Basophils % Neutrophils # Lymphocytes # Monocytes # Eosinophils # Basophils # PT INR APTT Sample Site L Radial ABG pH 7.32 ABG pCO2 42 ABG pO2 131 H ABG HCO3 22 ABG Total CO2 23 ABG O2 Saturation 99 H ABG Base Excess -5 L Nicolas Test Positive O2 Delivery Device BiPAP Inspired O2 50.0 PEEP 6 Sodium Potassium Chloride Carbon Dioxide BUN Creatinine Est GFR ( Amer) Est GFR (Non-Af Amer) BUN/Creatinine Ratio Glucose Calculated Osmolality Lactic Acid 3.8 H Calcium Phosphorus Magnesium Total Bilirubin AST ALT Alkaline Phosphatase Troponin I < 0.03 B-Natriuretic Peptide Serum Total Protein Albumin Globulin Albumin/Globulin Ratio 08/19/17 08/19/17 08/19/17 03:51 03:51 03:51 WBC 8.4 RBC 4.21 Hgb 11.1 L Hct 38.0 MCV 90.3 MCH 26.4 L MCHC 29.2 L RDW 16.4 H Plt Count 204 MPV 10.8 Immature Gran % 0.7 Seg Neutrophils % 87.0 Lymphocytes % 11.2 Monocytes % 1.0 Eosinophils % 0.0 Basophils % 0.1 Neutrophils # 7.3 Lymphocytes # 0.9 Monocytes # 0.1 Eosinophils # 0.0 Basophils # 0.0 PT 13.7 H INR 1.3 APTT 29.7 Sample Site ABG pH ABG pCO2 ABG pO2 ABG HCO3 ABG Total CO2 ABG O2 Saturation ABG Base Excess Nicolas Test O2 Delivery Device Inspired O2 PEEP Sodium Potassium Chloride Carbon Dioxide BUN Creatinine Est GFR ( Amer) Est GFR (Non-Af Amer) BUN/Creatinine Ratio Glucose Calculated Osmolality Lactic Acid Calcium Phosphorus Magnesium Total Bilirubin AST ALT Alkaline Phosphatase Troponin I < 0.03 B-Natriuretic Peptide Serum Total Protein Albumin Globulin Albumin/Globulin Ratio 08/19/17 08/19/17 08/19/17 03:51 03:51 09:59 WBC RBC Hgb Hct MCV MCH MCHC RDW Plt Count MPV Immature Gran % Seg Neutrophils % Lymphocytes % Monocytes % Eosinophils % Basophils % Neutrophils # Lymphocytes # Monocytes # Eosinophils # Basophils # PT INR APTT Sample Site ABG pH ABG pCO2 ABG pO2 ABG HCO3 ABG Total CO2 ABG O2 Saturation ABG Base Excess Nicolas Test O2 Delivery Device Inspired O2 PEEP Sodium 141 Potassium 5.9 H Chloride 111 H Carbon Dioxide 19 L BUN 36 H Creatinine 1.49 H Est GFR ( Amer) 42 L Est GFR (Non-Af Amer) 35 L BUN/Creatinine Ratio 24 Glucose 235 H Calculated Osmolality 308 H Lactic Acid Calcium 8.9 Phosphorus 4.7 H Magnesium 1.5 L Total Bilirubin 0.4 AST 11 L ALT 11 Alkaline Phosphatase 100 Troponin I < 0.03 B-Natriuretic Peptide 488 H Serum Total Protein 6.5 Albumin 3.5 Globulin 3.0 Albumin/Globulin Ratio 1.2 Short CBC 08/19/17 08/18/17 Range/Units 03:51 15:22 WBC 8.4 11.4 H (4.3-11.1) K/mcL Hgb 11.1 L 11.4 L (11.5-15.4) g/dL Hct 38.0 37.1 (35.3-44.9) % Plt Count 204 233 (140-400) K/mcL Neutrophils # 7.3 8.1 (1.6-8.9) K/mcL BMP 08/19/17 08/18/17 Range/Units 03:51 15:22 Sodium 141 139 (136-145) mEq/L Potassium 5.9 H 5.1 (3.5-5.1) mEq/L Chloride 111 H 106 (98-107) mEq/L Carbon Dioxide 19 L 21 L (23-29) mEq/L BUN 36 H 28 H (8-23) mg/dL Creatinine 1.49 H 1.31 H (0.60-1.20) mg/dL Glucose 235 H 248 H (70-105) mg/dL Calcium 8.9 8.8 (8.6-10.3) mg/dL Cardiac Enzymes 08/19/17 08/19/17 08/18/17 Range/Units 09:59 03:51 21:54 Troponin I < 0.03 < 0.03 < 0.03 (< 0.04) ng/mL 08/18/17 Range/Units 15:22 Troponin I < 0.03 (< 0.04) ng/mL Liver Function 08/19/17 08/18/17 Range/Units 03:51 15:22 Total Bilirubin 0.4 0.5 (0.3-1.0) mg/dL Direct Bilirubin 0.1 (0.0-0.2) mg/dL AST 11 L 16 (13-39) Units/L ALT 11 11 (7-52) Units/L Alkaline Phosphatase 100 105 H (34-104) Units/L Albumin 3.5 3.4 L (3.5-5.7) g/dL Urine 08/18/17 Range/Units 18:29 Urine Color Yellow (Yellow) Urine Clarity Clear (Clear) Urine pH 5.0 (5.0-8.0) pH Units Ur Specific [place] > 1.030 H (1.010-1.025) Urine Protein Negative (Neg-Trace) mg/dL Urine Glucose (UA) Normal (Normal) mg/dL Impressions Chest X-Ray 08/18/17 16:01 IMPRESSION: No acute process. D/ / Marino Flores MD / Marino Flores MD Interpreting Provider: Marino Flores MD Abdomen/Pelvis CTA 08/18/17 16:17 IMPRESSION: 1. No evidence of aortic aneurysm or dissection. No intramural hematoma. Atherosclerotic disease involving the aorta and major aortic branches. 2. Cardiomegaly without pericardial effusion. Interlobular septal thickening and ground-glass opacities suggestive of component of mild interstitial edema. 3. Incompletely characterized 15 mm right thyroid nodule. Recommend follow-up thyroid ultrasound nonemergently. 4. Unchanged renal calculus within the left renal pelvis with mild adjacent inflammation. The left kidney is smaller than the right. There is suggestion of renal cortical scarring involving the left kidney. 5. Mild periportal edema with trace amount of perihepatic free fluid. This is nonspecific but may be seen in setting of congestive heart failure. Correlation with the possibility of hepatitis should also be obtained. 6. Small amount of hypodensity within endoemtrial canal. Recommend further evaluation with pelvic ultrasound, if not previously performed. This is abnormal finding in a postmenopausal female. 7. Unchanged ventral abdominal wall hernia at the level of the umbilicus with herniation of the adjacent small bowel loop. Unchanged fat containing hernia more superiorly at the level of liver. No evidence of inflammation involving herniated bowel loop or mechanical bowel obstruction. 8. No convincing evidence of acute findings within abdomen or pelvis. RECOMMENDATIONS: Managing Incidental Thyroid Nodule Detected at CT or MRI or US 1. Further evaluation by thyroid Ultrasound recommended for these incidental nodules: Patient Age 18 years or less - Any nodule. Patient Age 19-34 years old - Nodule 1 cm in size or greater Patient Age 35 years or more - Nodule 1.5 cm in size or greater 2. Follow up thyroid ultrasound also recommend in these scenarios -Solitary nodule with high risk imaging features (locally invasive nodule or suspicious lymph nodes) -Any nodule in a heterogeneous enlarged thyroid gland 3. NO further imaging is recommended in the following scenarios -No f/u imaging is recommended for ITNs not meeting the above criteria. -No US or f/u recommended for ITNs without high risk features in pts. with limited life expectancy or significant co-morbidities, unless clinically warranted. Note: These recommendations do not apply to pts. w/ increased risk for thyroid cancer or pts. with symptomatic thyroid disease. Recommendations for f/u of Incidental Thyroid Nodules (ITN) found on CT, MR, NM and Extrathyroidal US are based upon the ACR white paper and Perez 3-tiered system for managing ITNs: J Am Rosalinda Radiol. 2015 Aug;12(2): 143-50 D/ / 08/18/2017 17:52:52 Nadeem Pickard MD / [facility] Interpreting Provider: Nadeem Pickard MD Chest CTA 08/18/17 16:17 IMPRESSION: 1. No evidence of aortic aneurysm or dissection. No intramural hematoma. Atherosclerotic disease involving the aorta and major aortic branches. 2. Cardiomegaly without pericardial effusion. Interlobular septal thickening and ground-glass opacities suggestive of component of mild interstitial edema. 3. Incompletely characterized 15 mm right thyroid nodule. Recommend follow-up thyroid ultrasound nonemergently. 4. Unchanged renal calculus within the left renal pelvis with mild adjacent inflammation. The left kidney is smaller than the right. There is suggestion of renal cortical scarring involving the left kidney. 5. Mild periportal edema with trace amount of perihepatic free fluid. This is nonspecific but may be seen in setting of congestive heart failure. Correlation with the possibility of hepatitis should also be obtained. 6. Small amount of hypodensity within endoemtrial canal. Recommend further evaluation with pelvic ultrasound, if not previously performed. This is abnormal finding in a postmenopausal female. 7. Unchanged ventral abdominal wall hernia at the level of the umbilicus with herniation of the adjacent small bowel loop. Unchanged fat containing hernia more superiorly at the level of liver. No evidence of inflammation involving herniated bowel loop or mechanical bowel obstruction. 8. No convincing evidence of acute findings within abdomen or pelvis. RECOMMENDATIONS: Managing Incidental Thyroid Nodule Detected at CT or MRI or US 1. Further evaluation by thyroid Ultrasound recommended for these incidental nodules: Patient Age 18 years or less - Any nodule. Patient Age 19-34 years old - Nodule 1 cm in size or greater Patient Age 35 years or more - Nodule 1.5 cm in size or greater 2. Follow up thyroid ultrasound also recommend in these scenarios -Solitary nodule with high risk imaging features (locally invasive nodule or suspicious lymph nodes) -Any nodule in a heterogeneous enlarged thyroid gland 3. NO further imaging is recommended in the following scenarios -No f/u imaging is recommended for ITNs not meeting the above criteria. -No US or f/u recommended for ITNs without high risk features in pts. with limited life expectancy or significant co-morbidities, unless clinically warranted. Note: These recommendations do not apply to pts. w/ increased risk for thyroid cancer or pts. with symptomatic thyroid disease. Recommendations for f/u of Incidental Thyroid Nodules (ITN) found on CT, MR, NM and Extrathyroidal US are based upon the ACR white paper and Perez 3-tiered system for managing ITNs: J Am Rosalinda Radiol. 2015 Aug;12(2): 143-50 D/ / 08/18/2017 17:52:52 Nadeem Pickard MD / [facility] Interpreting Provider: Nadeem Pickard MD Active Medications Albuterol/Ipratropium (Duoneb) 3 ml IH [id number] [facility] Stop: 02/17/18 21:33 Last Admin: 08/19/17 12:14 Dose: 3 ml Allopurinol (Zyloprim) 300 mg PO DAILY [facility] Stop: 02/18/18 09:01 Last Admin: 08/19/17 08:23 Dose: 300 mg Aspirin (Aspirin Ec) 81 mg PO DAILY [facility] Stop: 02/18/18 09:01 Last Admin: 08/19/17 08:22 Dose: 81 mg Atorvastatin Calcium (Lipitor) 10 mg PO HS [facility] Stop: 02/18/18 21:01 Heparin Sodium (Porcine) (Heparin) 5,000 unit SQ Q8HR [facility] Stop: 02/18/18 00:01 Last Admin: 08/19/17 08:22 Dose: 5,000 unit Sodium Chloride (0.9 % Sodium Chloride) 1,000 mls @ 70 mls/hr IVC .[id number] [facility] Last Admin: 08/18/17 21:55 Dose: 70 mls/hr Levofloxacin/Dextrose (Levaquin Premix 750mg/150 Ml) 750 mg in 150 mls @ 100 mls/hr IVPB DAILY [facility] PRN Reason: Protocol Stop: 02/17/18 22:01 Last Admin: 08/19/17 08:21 Dose: 100 mls/hr Piperacillin Sod/Tazobactam (Sod 3.375 gm/ Sodium Chloride) 100 mls @ 25 mls/ hr IVPB Q8H [facility] Stop: 02/17/18 22:01 Last Admin: 08/19/17 05:40 Dose: 25 mls/hr Methylprednisolone (Solu-Medrol) 60 mg IVP Q6HR [facility] Stop: 02/17/18 22:01 Last Admin: 08/19/17 05:40 Dose: 60 mg Naloxone HCl (Narcan) 0.4 mg IVP Q2MIN PRN PRN Reason: SEE COMMENTS Stop: 02/17/18 21:28 Pharmacy Profile Note (Patient Taking Own Medication) 0 each PO DAILY [facility] Stop: 02/18/18 09:01 Last Admin: 08/19/17 08:23 Dose: Not Given Ranolazine (Ranexa) 1,000 mg PO BID [facility] Stop: 02/18/18 09:01 Last Admin: 08/19/17 08:22 Dose: 1,000 mg Spironolactone (Aldactone) 25 mg PO DAILY [facility] Stop: 02/18/18 09:01 Last Admin: 08/19/17 08:23 Dose: 25 mg - Imaging and Cardiology Stress Test: report reviewed Echo: report reviewed - EKG Interpretation EKG results cardiology: personally reviewed, other (12 hr tele AVG HR 64, SR, lowest HR 44 during nocturnal hours) Consult Discharge Plan - Plan Referrals: Carroll Shipman MD [Primary Care Provider] -
[2017-08-19] MEDS: Magnesium Oxide 400 MG TABLET PO SCH (15:08)
[2017-08-19] MEDS: Insulin LISPRO 300 UNITS/3 ML VIAL SQ SCH ×3 (17:29→22:08)
[2017-08-19] MEDS ORDERED: Perflutren Lipid Microsphere 1.3 ML in 0.9 % Sodium Chloride 8.7 ML IVP ONE (20:57)
[2017-08-19] MEDS ORDERED: Insulin DETEMIR 100 UNIT/ML X5UNITS SQ SCH (21:00)
[2017-08-20] MEDS: Ipratropium/Albuterol Neb 3 ML IH SCH ×5 (03:53→19:26)
[2017-08-20] MEDS: methylPREDNISolone 125 MG/2 ML VIAL IVP SCH ×2 (04:22→11:23)
[2017-08-20] MEDS: *HR* Heparin 5,000 UNIT/ML VIAL SQ SCH ×3 (07:56→23:17)
[2017-08-20] MEDS: Levofloxacin 750 MG/150 ML 750 MG/150 ML BAG IVPB SCH (07:56)
[2017-08-20] MEDS: Ranolazine 500 MG TAB.ER.12H PO SCH ×2 (07:59→20:39)
[2017-08-20] MEDS: Aspirin Enteric Coated 81 MG Tablet PO SCH (07:59)
[2017-08-20] MEDS: Magnesium Oxide 400 MG TABLET PO SCH (07:59)
[2017-08-20] MEDS: (Ezetimibe [Zetia] 10 MG) PO SCH (07:59)
[2017-08-20] MEDS: Insulin LISPRO 300 UNITS/3 ML VIAL SQ SCH ×4 (08:01→20:48)
--- NOTE | 2017-08-20 08:57 | Internal Med Progress Note ---
<Aron Mckinney - Last Filed: 08/20/17 15:58> Date of Encounter: 08/20/17 Time of Encounter: 08:54 - Assessment and plan (1) Acute respiratory failure Current Visit: Yes Status: Acute Assessment and plan: Likely acute decompensated heart failure Possibly COPD and pneumonia Plan: -Solumedrol 60 mg IV Q6 Qualifiers: Respiratory failure complication: hypoxia Qualified Code(s): J96.01 - Acute respiratory failure with hypoxia (2) Symptomatic bradycardia Current Visit: Yes Status: Acute Assessment and plan: Normally takes Atenolol 100mg daily and Cardizem CD 120mg daily; currently being held. -HR 40s on presentation, was given atropine, calcium chloride and calcium gluconate -EKG: low voltage/P waves difficult to see -HR improved, 70s at bedside, appears regular, but P waves still difficult to see. 12 hr tele AVG HR 63, lowest HR 44bpm, nocturnal.. -TTE 09/06/16 EF 60-65%, mild-moderate cLVH, moderate LVDD, mild . -Stress test 08/2016 negative for ischemia or infarct -[facility] 11/2014 3 of 3 patent bypass grafts, [facility] [place] [facility] -Recheck TTE -Continue to allow BB washout, correct hyperkalemia and continue to monitor on telemetry overnight (3) Acute exacerbation of CHF (congestive heart failure) Current Visit: Yes Status: Acute Assessment and plan: TTE 08/2016: Moderate diastolic dysfunction CXR negative; Chest CT: mild interstitial edema. Chronic LE edema, unchanged from baseline. Worsening dyspnea. Plan: -Strict I/Os, Na and fluid restriction, daily weights. -Repeat TTE -Cardiac diet -2 doses of 40 mg lasix Qualifiers: Heart failure type: diastolic Qualified Code(s): I50.33 - Acute on chronic diastolic (congestive) heart failure (4) Abdominal pain Current Visit: Yes Status: Acute Assessment and plan: Pt reports intermittent epigastric pain x several months -Troponin negative x 4. No ischemic EKG changes. ST flattening present on prior EKGs as well. -Stress test 08/2016 - for ischemia or infarct. -[facility] 11/2014 severe [place] disease, but 3/3 patent bypass grafts. -TTE pending Qualifiers: Abdominal location: epigastric Qualified Code(s): R10.13 - Epigastric pain (5) Type 2 diabetes mellitus Current Visit: No Status: Chronic Assessment and plan: Accuchecks Q6H, ISS Qualifiers: Diabetes mellitus complication status: without complication Diabetes mellitus residential insulin use: with residential use Qualified Code(s): E11.9 - Type 2 diabetes mellitus without complications; Z79.4 - nursing home (current) use of insulin; Z79.4 - long term care pharmacist (current) use of insulin; Z79.4 - long term care pharmacist ( current) use of insulin; Z79.4 - nursing home (current) use of insulin (6) Acute kidney failure Current Visit: Yes Status: Acute Assessment and plan: Hold spironolactone Last Cr was 1.49 Qualifiers: Acute renal failure type: unspecified Qualified Code(s): N17.9 - Acute kidney failure, unspecified (7) DVT prophylaxis Current Visit: No Status: Acute Assessment and plan: Heparin Sq Q8H 5,000 units - Subjective Interval history: Ms. Yuen is a 66 year old female with PMH of HTN, HLD, CAD, 3V-CABG, CHF, COPD on 2L home O2, ARIELA who presented to the ED on 08/18/17 with the chief complaint of severe abdominal pain and SOB. Abdominal pain was cramping, epigastric. Reported that she's had this type of abdominal pain intermittently x 3 m when exerting herself; usually resolves on its own. Arrived to ED via EMS with pulse 48, BP 99/60, reportedly clutching abdomen in pain. Was given ASA, basic lab work drawn, and received CTA of chest and abdomen/pelvis. IV fentanyl and Zofran for pain and nausea. No evidence for 3rd degree heart block and flattened T waves V4-V6 on EKG. Atropine, calcium chloride, and calcium gluconate were given for suspected BB toxicity. Fluid resuscitation with 2L NS boluses. Pt initially admitted to E, but transferred to after she became less alert with pulse in upper 40's, and BP had dropped to 86/57. Was placed on BiPAP. Cardiology was consulted for turther recommendations on patients symptomatic bradycardia. Patient was seen and examined at bedside this morning. States that she is feeling well this morning. Has not required BiPAP for 2 days. Currently on O2 via NC. Denies any SOB, chest pain. No complaints at this time. - Constitutional Vitals: Temp Pulse Resp BP Pulse Ox 98.0 F 74 16 139/77 97 08/20/17 07:10 08/20/17 07:10 08/20/17 07:10 08/20/17 07:10 08/20/17 07:10 General appearance: Present: A&O X 3, no acute distress, obese - Head Head exam: Present: atraumatic, normocephalic - Eye Eye exam: Present: PERRL, conjuntiva pink, sclera anicteric Pupils: Present: PERRL - Neck Neck exam general surgery: Present: supple, trachea midline. Absent: lymphadenopathy - Respiratory Respiratory exam: Present: CTAB. Absent: accessory muscle use, rales, rhonchi, wheezes - Cardiovascular Cardiovascular exam: Present: RRR, +S1, +S2. Absent: diastolic murmur, gallop, rubs, systolic murmur - Extremities Exam Extremities exam: Present: warm, radial pulses palpable and symmetrical. Absent : calf tenderness, cyanotic, pedal edema - Neurological Exam Neurological exam: Present: CN II-XII intact, oriented X3, no focal deficits. Absent: pronater drift, facial droop, speech deficit - Skin Skin exam: Present: dry, intact Internal Medicine: Result - Labs CBC & Chem 7: 08/20/17 08:50 08/20/17 08:50 Labs: BMP 08/19/17 08/19/17 12:44 16:28 Potassium 5.0 4.5 Cardiac Enzymes 08/19/17 Range/Units 09:59 Troponin I < 0.03 (< 0.04) ng/mL - ABG Interpretation ABG results: ABG ABG pH 7.32 pH Units (7.32-7.45) 08/19/17 03:40 ABG pCO2 42 mmHg (35-45) 08/19/17 03:40 ABG pO2 131 mmHg (85-104) H 08/19/17 03:40 ABG O2 Saturation 99 % (95-98) H 08/19/17 03:40 PT/INR, D-dimer PT 13.7 Seconds (9.4-12.1) H 08/19/17 03:51 - Impressions Impressions Pelvis Ultrasound 08/19/17 18:00 IMPRESSION: Thickened endometrial stripe at 13.7 mm. Endometrial carcinoma needs to be excluded and sampling is indicated. Otherwise limited pelvic ultrasound due to patient's body habitus. No significant adnexal abnormality although the ovaries are not visualized. D/ / 08/19/2017 18:48:01 Masood Acosta MD / alec Interpreting Provider: Masood Acosta MD Consult Discharge Plan - Plan Referrals: Carroll Shipman MD [Primary Care Provider] - 08/27/17 10:15 am () <Elijah Chaparro - Last Filed: 08/20/17 16:22> Date of Encounter: 08/20/17 - Constitutional Vitals: Temp Pulse Resp BP Pulse Ox 98.1 F 89 16 120/72 100 08/20/17 11:17 08/20/17 11:17 08/20/17 16:15 08/20/17 11:17 08/20/17 16:15 Internal Medicine: Result - Labs CBC & Chem 7: 08/20/17 08:50 08/20/17 08:50 Labs: Short CBC 08/20/17 Range/Units 08:50 WBC 10.4 (4.3-11.1) K/mcL Hgb 10.9 L (11.5-15.4) g/dL Hct 36.4 (35.3-44.9) % Plt Count 196 (140-400) K/mcL Neutrophils # 9.3 H (1.6-8.9) K/mcL BMP 08/19/17 08/20/17 16:28 08:50 Sodium 139 Potassium 4.5 4.4 Chloride 106 Carbon Dioxide 23 BUN 39 H Creatinine 1.40 H Glucose 407 H Calcium 8.8 - ABG Interpretation ABG results: ABG ABG pH 7.32 pH Units (7.32-7.45) 08/19/17 03:40 ABG pCO2 42 mmHg (35-45) 08/19/17 03:40 ABG pO2 131 mmHg (85-104) H 08/19/17 03:40 ABG O2 Saturation 99 % (95-98) H 08/19/17 03:40 PT/INR, D-dimer PT 13.7 Seconds (9.4-12.1) H 08/19/17 03:51 - Impressions Impressions Echocardiogram 08/19/17 13:09 Impressions: LVEF 60-65%. Normal LV chamber size and function. Mild concentric left ventricular hypertrophy. Moderate left ventricular diastolic dysfunction. Atypical septal motion consistent with post-operative status. Normal right ventricular structure and function. Aortic valve not well visualized. Mild aortic stenosis suggested by Doppler. Mean gradient 15 mmHg. Moderate pulmonary hypertension. Estimated RVSP is 50 mmHg. Left Ventricular Wall Motion: Rest Echo Findings All wall segments showed normal motion. Findings: Study Quality * Technically sub-optimal due to body habitus. ECG Findings * Normal sinus rhythm. Left Ventricle * LVEF 60-65%. * Normal LV chamber size and function. * Mild concentric left ventricular hypertrophy. * Moderate left ventricular diastolic dysfunction. * Atypical septal motion consistent with post-operative status. Right Ventricle * Normal right ventricular structure and function. Left Atrium * Moderately dilated left atrium. Right Atrium * Mildly dilated right atrium. Interatrial Septum * Interatrial septum not well evaluated. Aortic Valve * Aortic valve not well visualized. * Mild aortic stenosis suggested by Doppler. Mean gradient 15 mmHg. * No aortic regurgitation. Mitral Valve * Normal mitral valve structure and function. * No mitral regurgitation. * No mitral stenosis. Tricuspid Valve * Normal tricuspid valve structure and function. * Trace tricuspid regurgitation. * Moderate pulmonary hypertension. * Estimated RVSP is 50 mmHg. * Estimated RA pressure is 5 mmHg. Pulmonic Valve * Pulmonic valve is not well visualized. * No pulmonic regurgitation. Aorta * Normally sized aortic root. Pericardium * The pericardium appears normal. IVC * The IVC is not well evaluated. Pulmonary Artery * Pulmonary artery not well visualized. Pelvis Ultrasound 08/19/17 18:00 IMPRESSION: Thickened endometrial stripe at 13.7 mm. Endometrial carcinoma needs to be excluded and sampling is indicated. Otherwise limited pelvic ultrasound due to patient's body habitus. No significant adnexal abnormality although the ovaries are not visualized. D/ / 08/19/2017 18:48:01 Masood Acosta MD / alec Interpreting Provider: Masood Acosta MD - Attending Attestation I personally interviewed and examined this patient. I agree with the findings, assessment, and plan of Dr. Mckinney, internal medicine internal combustion engine assembler. Patient is clinically improved. She does appear to be mildly hypervolemic, and we will try Lasix 40 mg IV twice a day and reassess in the morning. We will need to monitor her creatinine closely with this. Steroids as she has not felt to be having an acute COPD exacerbation. Antibiotics for D escalated to Levaquin alone. Possible bibasilar pneumonia noted on CAT scan. She is also noted to have an abnormal thyroid with a nodule seen and will recommend a dedicated CT or MRI versus ultrasound in the future. She also has an endometrial hypodensity which will report a pelvic ultrasound. She can follow up with gynecology for this. Else as outlined above. Urology input appreciated. Exam: Gen. no acute distress Neck supple Lungs with faint crackles at the bases bilaterally Regular rate and rhythm Abdomen is benign Etrem: pitting edema bilaterally Given warm and dry
[2017-08-20 09:16] LABS: Basophils % 0.1 %; Hematocrit 36.4 % (35.3-44.9); Hemoglobin 10.9 g/dL (11.5-15.4); Lymphocytes # 0.7 K/mcL (0.6-4.6); Lymphocytes % 6.6 %; Mean Corpuscular HGB Conc 29.9 g/dL (31.6-35.5); Mean Corpuscular Hemoglobin 26.7 pg (28.0-33.3); Mean Platelet Volume 10.8 fL (9.4-12.4); Monocytes # 0.3 K/mcL (0.0-1.3); Monocytes % 2.9 %; Neutrophils # 9.3 K/mcL (1.6-8.9); Platelet Count 196 K/mcL (140-400); Red Blood Count 4.09 M/mcL (3.82-4.97); Red Cell Distribution Width 16.6 % (11.5-14.5); Segmented Neutrophils % 89.4 %
[2017-08-20 09:19] LABS: Calcium 8.8 mg/dL (8.6-10.3); Potassium 4.4 mEq/L (3.5-5.1)
--- NOTE | 2017-08-20 10:54 | Event Note ---
Date of Encounter: 08/20/17 Time of Encounter: 10:49 Consultation was cosigned. [employer] will not allow me to provide attestation within the consultation. Please consider this my attestation. Patient is a 66-year-old who presents with a primary complaint of abdominal pain. Noted to have a possible junctional rhythm on admission. Patient taking calcium kendrick, beta kendrick at home. Also noted to be hyperkalemic. Previous ECGs reviewed. Patient noted to have a very low voltage P waves. Heart rate improved significantly overnight. Currently 70s to 90s. ECG this morning demonstrates a narrow complex rhythm. Heart rate 89. It is very difficult to appreciate P waves. Echocardiogram shows evidence of atrial contraction, which suggests rhythm is sinus. Impressions: Sinus bradycardia resolved. Possibly medication induced, worsened by hyperkalemia. CAD. Previous three-vessel CABG. [facility] 2014 - 08/31 patent grafts. Moderate diastolic dysfunction. No significant heart failure on admission. REBA Recommendations: Continue aspirin, statin therapy. Okay to negative chronotropic agents for now. Consider holding Aldactone given REBA, hyperkalemia. Echocardiogram is pending. If no significant changes, but no further inpatient cardiac testing appears to be necessary at this time. Outpatient follow-up with cardiology. Thanks, Asael An DO, FACC
[2017-08-20] MEDS ORDERED: Furosemide 40 MG/4 ML VIAL IVP ONE (17:01)
[2017-08-20] MEDS: Insulin DETEMIR 100 UNIT/ML X5UNITS SQ SCH (20:48)
[2017-08-21] MEDS: Ipratropium/Albuterol Neb 3 ML IH SCH ×7 (00:18→23:50)
[2017-08-21] MEDS ORDERED: Furosemide 40 MG/4 ML VIAL IVP ONE (05:00)
[2017-08-21] MEDS: *HR* Heparin 5,000 UNIT/ML VIAL SQ SCH ×3 (06:44→22:30)
[2017-08-21 07:07] LABS: Hematocrit 36.2 % (35.3-44.9); Hemoglobin 10.8 g/dL (11.5-15.4); Mean Corpuscular HGB Conc 29.8 g/dL (31.6-35.5); Mean Corpuscular Hemoglobin 26.6 pg (28.0-33.3); Mean Corpuscular Volume 89.2 fL (83.0-100.0); Mean Platelet Volume 10.6 fL (9.4-12.4); Platelet Count 196 K/mcL (140-400); Red Blood Count 4.06 M/mcL (3.82-4.97); Red Cell Distribution Width 16.4 % (11.5-14.5)
[2017-08-21 08:01] LABS: Potassium 4.4 mEq/L (3.5-5.1)
[2017-08-21] MEDS: levoFLOXacin 750 MG TABLET PO SCH (08:25)
[2017-08-21] MEDS: Aspirin Enteric Coated 81 MG Tablet PO SCH (08:25)
[2017-08-21] MEDS: Magnesium Oxide 400 MG TABLET PO SCH (08:26)
[2017-08-21] MEDS: Ranolazine 500 MG TAB.ER.12H PO SCH ×2 (08:26→19:57)
[2017-08-21] MEDS: (Ezetimibe [Zetia] 10 MG) PO SCH (08:27)
[2017-08-21] MEDS: Insulin LISPRO 300 UNITS/3 ML VIAL SQ SCH ×4 (08:28→19:58)
--- NOTE | 2017-08-21 09:06 | Internal Med Progress Note ---
<Elijah Chaparro R - Last Filed: 08/21/17 12:48> Date of Encounter: 08/21/17 - Constitutional Vitals: Temp Pulse Resp BP Pulse Ox 98.8 F 79 17 150/77 100 08/21/17 11:09 08/21/17 11:09 08/21/17 11:09 08/21/17 11:09 08/21/17 11:09 Internal Medicine: Result - Labs CBC & Chem 7: 08/21/17 06:44 08/21/17 06:44 Labs: Short CBC 08/21/17 Range/Units 06:44 WBC 8.8 (4.3-11.1) K/mcL Hgb 10.8 L (11.5-15.4) g/dL Hct 36.2 (35.3-44.9) % Plt Count 196 (140-400) K/mcL BMP 08/21/17 06:44 Sodium 141 Potassium 4.4 Chloride 106 Carbon Dioxide 29 BUN 42 H Creatinine 1.22 H Glucose 349 H Calcium 9.0 - ABG Interpretation ABG results: ABG ABG pH 7.32 pH Units (7.32-7.45) 08/19/17 03:40 ABG pCO2 42 mmHg (35-45) 08/19/17 03:40 ABG pO2 131 mmHg (85-104) H 08/19/17 03:40 ABG O2 Saturation 99 % (95-98) H 08/19/17 03:40 PT/INR, D-dimer PT 13.7 Seconds (9.4-12.1) H 08/19/17 03:51 - Impressions Impressions Echocardiogram 08/19/17 13:09 Impressions: LVEF 60-65%. Normal LV chamber size and function. Mild concentric left ventricular hypertrophy. Moderate left ventricular diastolic dysfunction. Atypical septal motion consistent with post-operative status. Normal right ventricular structure and function. Aortic valve not well visualized. Mild aortic stenosis suggested by Doppler. Mean gradient 15 mmHg. Moderate pulmonary hypertension. Estimated RVSP is 50 mmHg. Left Ventricular Wall Motion: Rest Echo Findings All wall segments showed normal motion. Findings: Study Quality * Technically sub-optimal due to body habitus. ECG Findings * Normal sinus rhythm. Left Ventricle * LVEF 60-65%. * Normal LV chamber size and function. * Mild concentric left ventricular hypertrophy. * Moderate left ventricular diastolic dysfunction. * Atypical septal motion consistent with post-operative status. Right Ventricle * Normal right ventricular structure and function. Left Atrium * Moderately dilated left atrium. Right Atrium * Mildly dilated right atrium. Interatrial Septum * Interatrial septum not well evaluated. Aortic Valve * Aortic valve not well visualized. * Mild aortic stenosis suggested by Doppler. Mean gradient 15 mmHg. * No aortic regurgitation. Mitral Valve * Normal mitral valve structure and function. * No mitral regurgitation. * No mitral stenosis. Tricuspid Valve * Normal tricuspid valve structure and function. * Trace tricuspid regurgitation. * Moderate pulmonary hypertension. * Estimated RVSP is 50 mmHg. * Estimated RA pressure is 5 mmHg. Pulmonic Valve * Pulmonic valve is not well visualized. * No pulmonic regurgitation. Aorta * Normally sized aortic root. Pericardium * The pericardium appears normal. IVC * The IVC is not well evaluated. Pulmonary Artery * Pulmonary artery not well visualized. Pelvis Ultrasound 08/19/17 18:00 IMPRESSION: Thickened endometrial stripe at 13.7 mm. Endometrial carcinoma needs to be excluded and sampling is indicated. Otherwise limited pelvic ultrasound due to patient's body habitus. No significant adnexal abnormality although the ovaries are not visualized. D/ / 08/19/2017 18:48:01 Masood Acosta MD / alec Interpreting Provider: Masood Acosta MD Consult Discharge Plan - Plan Referrals: Carroll Shipman MD [Primary Care Provider] - 08/27/17 10:15 am () - Attending Attestation I personally interviewed and examined this patient. With the findings, assessment, and plan of Dr. Mckinney, internal medicine physician general internal medicine. Patient is responding well to diuresis. We will continue to diurese as renal function allows. Suspect patient has multifactorial restaurant failure. Possibly related to COPD and required pneumonia, but more likely acute on chronic diastolic congestive heart failure. Echocardiogram reveals concentric LVH with EF 60-65% , diastolic dysfunction as well as moderate pulmonary hypertension. There is limited beta kendrick use due to her significant bradycardia, will add Imdur to her blood pressure regimen. Renal function has improved despite diuresis. Continue with current treatment. Hopefully transition to oral medications in 1- 2 days. <Aron Mckinney - Last Filed: 08/21/17 13:07> Date of Encounter: 08/21/17 Time of Encounter: 09:04 - Assessment and plan (1) Symptomatic bradycardia Current Visit: Yes Status: Acute Assessment and plan: Normally takes Atenolol 100mg daily and Cardizem CD 120mg daily; currently being held. -HR 40s on presentation, was given atropine, calcium chloride and calcium gluconate -EKG: low voltage/P waves difficult to see -HR improved, 70s at bedside, appears regular, but P waves still difficult to see. 12 hr tele AVG HR 63, lowest HR 44bpm, nocturnal.. -TTE 09/06/16 EF 60-65%, mild-moderate cLVH, moderate LVDD, mild . -Stress test 08/2016 negative for ischemia or infarct -[facility] 11/2014 3 of 3 patent bypass grafts, severe [place] disease ECHO on 08/19/17 demonstrates the following: -EF 60-65%, Mild concentric LVH -Moderate LV diatolic dysfunction -Moderate pulm HTN Per the recommendations of cardiology: -Continue to allow BB washout, correct hyperkalemia Imdur has been started today for BP control. (2) Acute respiratory failure Current Visit: Yes Status: Acute Assessment and plan: Likely acute decompensated heart failure Possibly COPD and pneumonia Plan: -Solumedrol 60 mg IV Q6 Qualifiers: Respiratory failure complication: hypoxia Qualified Code(s): J96.01 - Acute respiratory failure with hypoxia (3) Acute exacerbation of CHF (congestive heart failure) Current Visit: Yes Status: Acute Assessment and plan: TTE 08/2016: Moderate diastolic dysfunction CXR negative; Chest CT: mild interstitial edema. Chronic LE edema, unchanged from baseline. Worsening dyspnea ECHO on 08/19/17 demonstrates the following: -EF 60-65%, Mild concentric LVH -Moderate LV diatolic dysfunction -Moderate pulm HTN Plan: -Strict I/Os, Na and fluid restriction, daily weights. -Cardiac diet Qualifiers: Heart failure type: diastolic Qualified Code(s): I50.33 - Acute on chronic diastolic (congestive) heart failure (4) Abdominal pain Current Visit: Yes Status: Acute Assessment and plan: Pt reports intermittent epigastric pain x several months -Troponin negative x 4. No ischemic EKG changes. ST flattening present on prior EKGs as well. -Stress test 08/2016 - for ischemia or infarct. -[facility] 11/2014 severe [place] disease, but 3/3 patent bypass grafts. -TTE pending Qualifiers: Abdominal location: epigastric Qualified Code(s): R10.13 - Epigastric pain (5) Type 2 diabetes mellitus Current Visit: No Status: Chronic Assessment and plan: Accuchecks Q6H, ISS Qualifiers: Diabetes mellitus complication status: without complication Diabetes mellitus assisted insulin use: with assisted use Qualified Code(s): E11.9 - Type 2 diabetes mellitus without complications; Z79.4 - director long term care (current) use of insulin; Z79.4 - correction (current) use of insulin; Z79.4 - director long term care ( current) use of insulin; Z79.4 - director long term care (current) use of insulin (6) Acute kidney failure Current Visit: Yes Status: Acute Assessment and plan: Renal function improving; Last Cr was 1.22 Hold spironolactone Qualifiers: Acute renal failure type: unspecified Qualified Code(s): N17.9 - Acute kidney failure, unspecified (7) DVT prophylaxis Current Visit: No Status: Acute Assessment and plan: Heparin Sq Q8H 5,000 units - Subjective Interval history: Patient was seen and examined at bedside this morning. States that she is feeling well this morning. Has not required BiPAP for 3 days. Currently on O2 via NC. Denies any SOB, chest pain. No complaints at this time. - Constitutional Vitals: Temp Pulse Resp BP Pulse Ox 98.2 F 78 18 171/96 97 08/21/17 07:25 08/21/17 08:00 08/21/17 07:32 08/21/17 07:25 08/21/17 07:32 General appearance: Present: A&O X 3, no acute distress, obese - Head Head exam: Present: atraumatic, normocephalic - Eye Eye exam: Present: PERRL, conjuntiva pink, sclera anicteric Pupils: Present: PERRL - Neck Neck exam general surgery: Present: supple, trachea midline. Absent: lymphadenopathy - Respiratory Respiratory exam: Present: CTAB. Absent: accessory muscle use, rales, rhonchi, wheezes - Cardiovascular Cardiovascular exam: Present: RRR, +S1, +S2. Absent: diastolic murmur, gallop, rubs, systolic murmur - GI/Abdominal GI/Abdominal exam: Absent: distended, tenderness - Extremities Exam Extremities exam: Present: warm, radial pulses palpable and symmetrical. Absent : calf tenderness, cyanotic, pedal edema - Neurological Exam Neurological exam: Present: CN II-XII intact, oriented X3, no focal deficits. Absent: pronater drift, facial droop, speech deficit - Skin Skin exam: Present: dry, intact Internal Medicine: Result - Labs CBC & Chem 7: 08/21/17 06:44 08/21/17 06:44 Labs: Short CBC 08/20/17 08/21/17 Range/Units 08:50 06:44 WBC 10.4 8.8 (4.3-11.1) K/mcL Hgb 10.9 L 10.8 L (11.5-15.4) g/dL Hct 36.4 36.2 (35.3-44.9) % Plt Count 196 196 (140-400) K/mcL Neutrophils # 9.3 H (1.6-8.9) K/mcL BMP 08/20/17 08/21/17 08:50 06:44 Sodium 139 141 Potassium 4.4 4.4 Chloride 106 106 Carbon Dioxide 23 29 BUN 39 H 42 H Creatinine 1.40 H 1.22 H Glucose 407 H 349 H Calcium 8.8 9.0 - ABG Interpretation ABG results: ABG ABG pH 7.32 pH Units (7.32-7.45) 08/19/17 03:40 ABG pCO2 42 mmHg (35-45) 08/19/17 03:40 ABG pO2 131 mmHg (85-104) H 08/19/17 03:40 ABG O2 Saturation 99 % (95-98) H 08/19/17 03:40 PT/INR, D-dimer PT 13.7 Seconds (9.4-12.1) H 08/19/17 03:51 - Impressions Impressions Echocardiogram 08/19/17 13:09 Impressions: LVEF 60-65%. Normal LV chamber size and function. Mild concentric left ventricular hypertrophy. Moderate left ventricular diastolic dysfunction. Atypical septal motion consistent with post-operative status. Normal right ventricular structure and function. Aortic valve not well visualized. Mild aortic stenosis suggested by Doppler. Mean gradient 15 mmHg. Moderate pulmonary hypertension. Estimated RVSP is 50 mmHg. Left Ventricular Wall Motion: Rest Echo Findings All wall segments showed normal motion. Findings: Study Quality * Technically sub-optimal due to body habitus. ECG Findings * Normal sinus rhythm. Left Ventricle * LVEF 60-65%. * Normal LV chamber size and function. * Mild concentric left ventricular hypertrophy. * Moderate left ventricular diastolic dysfunction. * Atypical septal motion consistent with post-operative status. Right Ventricle * Normal right ventricular structure and function. Left Atrium * Moderately dilated left atrium. Right Atrium * Mildly dilated right atrium. Interatrial Septum * Interatrial septum not well evaluated. Aortic Valve * Aortic valve not well visualized. * Mild aortic stenosis suggested by Doppler. Mean gradient 15 mmHg. * No aortic regurgitation. Mitral Valve * Normal mitral valve structure and function. * No mitral regurgitation. * No mitral stenosis. Tricuspid Valve * Normal tricuspid valve structure and function. * Trace tricuspid regurgitation. * Moderate pulmonary hypertension. * Estimated RVSP is 50 mmHg. * Estimated RA pressure is 5 mmHg. Pulmonic Valve * Pulmonic valve is not well visualized. * No pulmonic regurgitation. Aorta * Normally sized aortic root. Pericardium * The pericardium appears normal. IVC * The IVC is not well evaluated. Pulmonary Artery * Pulmonary artery not well visualized. Pelvis Ultrasound 08/19/17 18:00
[2017-08-21] MEDS: Isosorbide MONOnitrate (24 HR) 60 MG TAB.ER.24H PO SCH (15:53)
[2017-08-21] MEDS: Insulin DETEMIR 100 UNIT/ML X5UNITS SQ SCH (19:58)
[2017-08-22] MEDS: Ipratropium/Albuterol Neb 3 ML IH SCH ×6 (03:42→22:57)
[2017-08-22 06:41] LABS: Hematocrit 35.2 % (35.3-44.9); Hemoglobin 10.6 g/dL (11.5-15.4); Mean Corpuscular HGB Conc 30.1 g/dL (31.6-35.5); Mean Corpuscular Volume 89.6 fL (83.0-100.0); Mean Platelet Volume 10.4 fL (9.4-12.4); Platelet Count 170 K/mcL (140-400); Red Blood Count 3.93 M/mcL (3.82-4.97); Red Cell Distribution Width 16.3 % (11.5-14.5)
[2017-08-22 07:04] LABS: Potassium 4.6 mEq/L (3.5-5.1)
--- NOTE | 2017-08-22 07:21 | Internal Med Progress Note ---
<Elijah Chaparro - Last Filed: 08/22/17 16:03> Date of Encounter: 08/22/17 - Subjective Interval history: Other than history of present illness, a 10 point review of systems is negative - Constitutional Vitals: Temp Pulse Resp BP Pulse Ox 97.5 F L 83 18 136/83 99 08/22/17 11:04 08/22/17 11:04 08/22/17 11:08 08/22/17 11:04 08/22/17 11:08 Internal Medicine: Result - Labs CBC & Chem 7: 08/22/17 06:12 08/22/17 06:12 Labs: Short CBC 08/22/17 Range/Units 06:12 WBC 8.7 (4.3-11.1) K/mcL Hgb 10.6 L (11.5-15.4) g/dL Hct 35.2 L (35.3-44.9) % Plt Count 170 (140-400) K/mcL BMP 08/22/17 06:12 Sodium 144 Potassium 4.6 Chloride 107 Carbon Dioxide 33 H BUN 40 H Creatinine 1.22 H Glucose 147 H Calcium 9.0 - ABG Interpretation ABG results: ABG ABG pH 7.32 pH Units (7.32-7.45) 08/19/17 03:40 ABG pCO2 42 mmHg (35-45) 08/19/17 03:40 ABG pO2 131 mmHg (85-104) H 08/19/17 03:40 ABG O2 Saturation 99 % (95-98) H 08/19/17 03:40 PT/INR, D-dimer PT 13.7 Seconds (9.4-12.1) H 08/19/17 03:51 Consult Discharge Plan - Plan Referrals: Carroll Shipman MD [Primary Care Provider] - 08/27/17 10:15 am () - Attending Attestation I personally interviewed and examined this patient. I agree with the findings, assessment, and plan of Dr. Mckinney, internal medicine financial internship. Patient is significantly improved. Her congestive heart failure, acute on chronic diastolic appears to be compensated. Pressure control is improved with the addition of Imdur. She is down to 3 L of action per nasal cannula. She will be completing her course of Levaquin for suspected acquired pneumonia. Wean steroids. We will increase activity. Anticipate discharged later today if continues to do well. <Aron Mckinney - Last Filed: 08/22/17 17:07> Date of Encounter: 08/22/17 Time of Encounter: 07:20 - Assessment and plan (1) Symptomatic bradycardia Current Visit: Yes Status: Acute Assessment and plan: Normally takes Atenolol 100mg daily and Cardizem CD 120mg daily; currently being held. -HR 40s on presentation, was given atropine, calcium chloride and calcium gluconate -EKG: low voltage/P waves difficult to see -HR improved, 70s at bedside, appears regular, but P waves still difficult to see. 12 hr tele AVG HR 63, lowest HR 44bpm, nocturnal.. -TTE 09/06/16 EF 60-65%, mild-moderate cLVH, moderate LVDD, mild . -Stress test 08/2016 negative for ischemia or infarct -[facility] 11/2014 3 of 3 patent bypass grafts, severe [place] disease ECHO on 08/19/17 demonstrates the following: -EF 60-65%, Mild concentric LVH -Moderate LV diatolic dysfunction -Moderate pulm HTN Per the recommendations of cardiology: -Continue to allow BB washout, correct hyperkalemia Imdur has been started today for BP control. (2) Acute respiratory failure Current Visit: Yes Status: Acute Assessment and plan: Likely acute decompensated heart failure Possibly COPD and pneumonia Plan: -Solumedrol 60 mg IV Q6 Qualifiers: Respiratory failure complication: hypoxia Qualified Code(s): J96.01 - Acute respiratory failure with hypoxia (3) Acute exacerbation of CHF (congestive heart failure) Current Visit: Yes Status: Acute Assessment and plan: TTE 08/2016: Moderate diastolic dysfunction CXR negative; Chest CT: mild interstitial edema. Chronic LE edema, unchanged from baseline. Worsening dyspnea ECHO on 08/19/17 demonstrates the following: -EF 60-65%, Mild concentric LVH -Moderate LV diatolic dysfunction -Moderate pulm HTN Plan: -Strict I/Os, Na and fluid restriction, daily weights. -Cardiac diet Qualifiers: Heart failure type: diastolic Qualified Code(s): I50.33 - Acute on chronic diastolic (congestive) heart failure (4) Abdominal pain Current Visit: Yes Status: Acute Assessment and plan: Pt reports intermittent epigastric pain x several months -Troponin negative x 4. No ischemic EKG changes. ST flattening present on prior EKGs as well. -Stress test 08/2016 - for ischemia or infarct. -C 11/2014 severe [place] disease, but 3/3 patent bypass grafts. -TTE pending Qualifiers: Abdominal location: epigastric Qualified Code(s): R10.13 - Epigastric pain (5) Type 2 diabetes mellitus Current Visit: No Status: Chronic Assessment and plan: Accuchecks Q6H, ISS Qualifiers: Diabetes mellitus complication status: without complication Diabetes mellitus longterm insulin use: with longterm use Qualified Code(s): E11.9 - Type 2 diabetes mellitus without complications; Z79.4 - long term care social worker (current) use of insulin; Z79.4 - senior care (current) use of insulin; Z79.4 - long term care social worker ( current) use of insulin; Z79.4 - long term care social worker (current) use of insulin (6) Acute kidney failure Current Visit: Yes Status: Acute Assessment and plan: Renal function improving Hold spironolactone Qualifiers: Acute renal failure type: unspecified Qualified Code(s): N17.9 - Acute kidney failure, unspecified (7) DVT prophylaxis Current Visit: No Status: Acute Assessment and plan: Heparin Sq Q8H 5,000 units - Subjective Interval history: Patient was seen and examined at bedside this morning. States that she is feeling well this morning. Has not required BiPAP for 3 days. Currently on O2 via NC. Denies any SOB, chest pain. No complaints at this time. - Constitutional Vitals: Temp Pulse Resp BP Pulse Ox 97.5 F L 85 22 163/91 97 08/22/17 04:08 08/22/17 04:08 08/22/17 04:08 08/22/17 04:08 08/22/17 04:08 General appearance: Present: A&O X 3, no acute distress, obese - Head Head exam: Present: atraumatic, normocephalic - Eye Eye exam: Present: PERRL, conjuntiva pink, sclera anicteric Pupils: Present: PERRL - Neck Neck exam general surgery: Present: supple, trachea midline. Absent: lymphadenopathy - Respiratory Respiratory exam: Present: CTAB. Absent: accessory muscle use, rales, rhonchi, wheezes - Cardiovascular Cardiovascular exam: Present: RRR, +S1, +S2. Absent: diastolic murmur, gallop, rubs, systolic murmur - GI/Abdominal GI/Abdominal exam: Present: normal bowel sounds, soft, no peritoneal signs. Absent: distended, tenderness - Extremities Exam Extremities exam: Present: warm, radial pulses palpable and symmetrical. Absent : calf tenderness, cyanotic, pedal edema - Neurological Exam Neurological exam: Present: CN II-XII intact, oriented X3, no focal deficits. Absent: pronater drift, facial droop, speech deficit - Skin Skin exam: Present: dry, intact Internal Medicine: Result - Labs CBC & Chem 7: 08/22/17 06:12 08/22/17 06:12 Labs: Short CBC 08/22/17 Range/Units 06:12 WBC 8.7 (4.3-11.1) K/mcL Hgb 10.6 L (11.5-15.4) g/dL Hct 35.2 L (35.3-44.9) % Plt Count 170 (140-400) K/mcL BMP 08/21/17 08/22/17 06:44 06:12 Sodium 141 144 Potassium 4.4 4.6 Chloride 106 107 Carbon Dioxide 29 33 H BUN 42 H 40 H Creatinine 1.22 H 1.22 H Glucose 349 H 147 H Calcium 9.0 9.0 - ABG Interpretation ABG results: ABG ABG pH 7.32 pH Units (7.32-7.45) 08/19/17 03:40 ABG pCO2 42 mmHg (35-45) 08/19/17 03:40 ABG pO2 131 mmHg (85-104) H 08/19/17 03:40 ABG O2 Saturation 99 % (95-98) H 08/19/17 03:40 PT/INR, D-dimer PT 13.7 Seconds (9.4-12.1) H 08/19/17 03:51
[2017-08-22] MEDS: Insulin LISPRO 300 UNITS/3 ML VIAL SQ SCH ×3 (07:42→17:27)
[2017-08-22] MEDS: Aspirin Enteric Coated 81 MG Tablet PO SCH (08:40)
[2017-08-22] MEDS: levoFLOXacin 750 MG TABLET PO SCH (08:40)
[2017-08-22] MEDS: *HR* Heparin 5,000 UNIT/ML VIAL SQ SCH ×2 (08:40→17:26)
[2017-08-22] MEDS: Ranolazine 500 MG TAB.ER.12H PO SCH (08:40)
[2017-08-22] MEDS: Magnesium Oxide 400 MG TABLET PO SCH (08:40)
[2017-08-22] MEDS: Isosorbide MONOnitrate (24 HR) 60 MG TAB.ER.24H PO SCH (08:40)
[2017-08-22] MEDS: (Ezetimibe [Zetia] 10 MG) PO SCH (08:41)
[2017-08-22 16:18] VITALS: BP 133/77
--- NOTE | 2017-08-22 16:38 | Discharge Summary ---
<Aron Mckinney - Last Filed: 08/22/17 17:09> - NOTES TO OUTPATIENT PROVIDER Notes to Outpatient Provider: Order BMP in one week to assess renal function; patient will be discharged on ADRIA inhibitor. Patient had incidental thyroid nodule found on CT scan and endometrial thickening on pelvic ultrasound; Patient will need follow up and possible referal to EARLY INTERVENTIONIST and Surgery for workup Date of Encounter: 08/22/17 Time of Encounter: 10:30 - Discharge Diagnosis (1) Symptomatic bradycardia Priority: Primary Status: Acute (2) Acute respiratory failure Priority: Secondary Status: Acute Qualifiers: Respiratory failure complication: hypoxia Qualified Code(s): J96.01 - Acute respiratory failure with hypoxia (3) Acute exacerbation of CHF (congestive heart failure) Priority: Secondary Status: Acute Qualifiers: Heart failure type: diastolic Qualified Code(s): I50.33 - Acute on chronic diastolic (congestive) heart failure (4) Abdominal pain Priority: Secondary Status: Acute Qualifiers: Abdominal location: epigastric Qualified Code(s): R10.13 - Epigastric pain (5) Type 2 diabetes mellitus Priority: Secondary Status: Chronic Qualifiers: Diabetes mellitus complication status: without complication Diabetes mellitus residential insulin use: with residential use Qualified Code(s): E11.9 - Type 2 diabetes mellitus without complications; Z79.4 - jail (current) use of insulin; Z79.4 - jail (current) use of insulin; Z79.4 - jail ( current) use of insulin; Z79.4 - terminal gauger (current) use of insulin (6) Acute kidney failure Priority: Secondary Status: Acute Qualifiers: Acute renal failure type: unspecified Qualified Code(s): N17.9 - Acute kidney failure, unspecified (7) DVT prophylaxis Priority: Secondary Status: Acute Hospital course: Ms. Yuen is a 66 year old female 66 year old female with PMH of HTN, HLD, CAD, 3V-CABG, CHF, COPD on 2L home O2, ARIELA who presented to the ED on 08/18/17 with the chief complaint of severe abdominal pain and SOB. Abdominal pain was cramping, epigastric. Reported that she's had this type of abdominal pain intermittently x 3 m when exerting herself; usually resolves on its own. Arrived to ED via EMS with pulse 48, BP 99/60, reportedly clutching abdomen in pain. Was given ASA, basic lab work drawn, and received CTA of chest and abdomen/pelvis. IV fentanyl and Zofran for pain and nausea. No evidence for 3rd degree heart block and flattened T waves V4-V6 on EKG. Atropine, calcium chloride, and calcium gluconate were given for suspected BB toxicity. Fluid resuscitation with 2L NS boluses. Pt initially admitted to E, but transferred to after she became less alert with pulse in upper 40's, and BP had dropped to 86/57. Was placed on BiPAP. Cardiology was consulted for turther recommendations on patients symptomatic bradycardia. BB and CCB were held. Patient was started on Imdur. After this, patient did not experience any more episodes of bradycardia. On pelvic ultrasound, patient had an incidental finding of endometrial thickening. Patient will need outpatient followup for a further workup. Patient also had a thyroid nodule that was found on CT scan. Will need outpatient followup; possible surgery referral. Patient was seen and examined on date of discharge. Feeling well today. Will be discharged on Imdur, Lisinopril, and 4 more days of Levaquin. Time spent discussing smoking cessation with patient: more than 10 minutes (42 minutes) - Time Spent with Patient Total time spent providing and/or coordinating discharge services: - Discharge Medications Home Medications: Allopurinol [Zyloprim] 300 mg PO DAILY 03/31/15 [History] Aspirin [Adult Low Dose Aspirin EC] 81 mg PO DAILY 03/31/15 [History] Atenolol [Tenormin] 100 mg PO DAILY 03/31/15 [History] Cetirizine HCl [Zyrtec] 10 mg PO DAILY 03/31/15 [History] Citalopram Hydrobromide [Celexa] 40 mg PO DAILY 03/31/15 [History] Diltiazem HCl [Diltiazem 24Hr Cd] 120 mg PO DAILY 03/31/15 [History] Isosorbide MONOnitrate (24 HR) [Imdur] 30 mg PO DAILY 03/31/15 [History] Metformin HCl [Fortamet] 1,000 mg PO BID 03/31/15 [History] Omeprazole [PriLOSEC] 40 mg PO DAILY 03/31/15 [History] Ranolazine [Ranexa] 1,000 mg PO BID 03/31/15 [History] SitaGLIPtin [Januvia] 50 mg PO DAILY 03/31/15 [History] Spironolactone [Aldactone] 25 mg PO DAILY 03/31/15 [History] Albuterol Sulfate [Albuterol Inhaler] 2 puff IH Q4HR #1 hfa.aer.ad 10/06/15 [Rx] Atorvastatin [Lipitor] 40 mg PO HS 09/06/16 [History] Ezetimibe [Zetia] 10 mg PO DAILY 09/06/16 [History] Buspirone HCl [Buspar] 10 mg PO BID PRN 08/19/17 [History] Furosemide [Lasix] 20 mg PO DAILY 08/19/17 [History] Insulin Degludec [Tresiba Flextouch U-200] 90 units SQ HS 08/19/17 [History] Allergies/Adverse Reactions: 3 Allergy/AdvReac Type Severity Reaction Status Date / Time potassium chloride Allergy Difficulty Verified 09/06/16 10:30 [From K-Dur] Breathing ibuprofen AdvReac Mild Hives Verified 08/18/17 15:54 lisinopril AdvReac Hives Verified 08/18/17 15:54 Date of admission: 08/18/17 21:28 Primary care physician: Carroll Shipman MD Consults: 08/18/17 23:58 Consult to Pastoral Services [CONS] Routine Comment: 08/19/17 12:01 Consult to Cardiology [CONS] Routine Comment: Consulting Provider: Cardiology [place] Reason for Consult: Symptomatic bradycardia Call Completed: Yes 08/20/17 11:20 Consult to Occupational Therapy [CONS] Routine Comment: Evaluate, develop and implement POC Reason for Consult: Deconditioned state and multiple falls at home. Consult to Physical Therapy [CONS] Routine Comment: Evaluate, develop and implement POC Reason for Consult: Deconditioned state and multiple falls at home. 08/22/17 08:51 Consult to Nurse Navigator [CONS] Routine Comment: CHF Discharging clinician: Aron Mckinney Anticipated date of discharge: 08/22/17 - Constitutional Vitals: Temp Pulse Resp BP Pulse Ox 98.0 F 84 22 133/77 93 08/22/17 16:15 08/22/17 16:15 08/22/17 16:15 08/22/17 16:15 08/22/17 16:15 General appearance: Present: A&O X 3, no acute distress, obese - Head Head exam: Present: atraumatic, normocephalic - Eye Eye exam: Present: PERRL, conjuntiva pink, sclera anicteric Pupils: Present: PERRL - Neck Neck exam general surgery: Present: supple, trachea midline. Absent: lymphadenopathy - Respiratory Respiratory exam: Present: CTAB. Absent: accessory muscle use, rales, rhonchi, wheezes - Cardiovascular Cardiovascular exam: Present: RRR, +S1, +S2. Absent: diastolic murmur, gallop, rubs, systolic murmur - GI/Abdominal GI/Abdominal exam: Present: normal bowel sounds, soft, no peritoneal signs. Absent: distended, tenderness - Extremities Exam Extremities exam: Present: warm, radial pulses palpable and symmetrical. Absent : calf tenderness, cyanotic, pedal edema - Neurological Exam Neurological exam: Present: CN II-XII intact, oriented X3, no focal deficits. Absent: pronater drift, facial droop, speech deficit - Skin Skin exam: Present: dry, intact - Patient Status Disposition: Home, Self-Care Condition: Fair Overall status at discharge: patient is progressing back to baseline - Discharge Instructions Follow Up With: Carroll Shpiman MD [Primary Care Provider] - 08/27/17 10:15 am () - Diet and Activity Activity: increase activity as tolerated Diet: advance to your usual diet <Elijah Chaparro - Last Filed: 08/22/17 17:16> Date of Encounter: 08/22/17 Hospital course: Ms. Yuen is a 66 year old female - Time Spent with Patient Total time spent providing and/or coordinating discharge services: Date of admission: 08/18/17 21:28 Primary care physician: Carroll Shipman MD Consults: 08/18/17 23:58 Consult to Pastoral Services [CONS] Routine Comment: 08/19/17 12:01 Consult to Cardiology [CONS] Routine Comment: Consulting Provider: Cardiology [place] Reason for Consult: Symptomatic bradycardia Call Completed: Yes 08/20/17 11:20 Consult to Occupational Therapy [CONS] Routine Comment: Evaluate, develop and implement POC Reason for Consult: Deconditioned state and multiple falls at home. Consult to Physical Therapy [CONS] Routine Comment: Evaluate, develop and implement POC Reason for Consult: Deconditioned state and multiple falls at home. 08/22/17 08:51 Consult to Nurse Navigator [CONS] Routine Comment: CHF - Constitutional Vitals: Temp Pulse Resp BP Pulse Ox 98.0 F 84 22 133/77 93 08/22/17 16:15 08/22/17 16:15 08/22/17 16:15 08/22/17 16:15 08/22/17 16:15 - Attending Attestation I personally interviewed and examined this patient. I agree with the findings, assessment, and plan of Dr. Mckinney, internal medicine sales management intern. Did well. She is now compensated from a CHF standpoint. Medications as outlined for her CHF including the addition of ADRIA inhibitor. She remains off beta kendrick due to the dramatic bradycardia. A follow-up BMP in a week and a follow-up with her primary care provider. Also noted that she will need surgical evaluation of a thyroid nodule seen on CT scan, and gynecology referral for noted endometrial thickening on ultrasound. Ration is aware of this and we did indicate this to her primary care provider. Patient otherwise was doing well and deemed stable for discharge. She will continue on her chronic oxygen therapy, currently at 2.5 L per nasal cannula. A total of 41 minutes was spent on discharge and coordination of care.
--- NOTE | 2017-08-22 20:20 | Electrocardiograph Report ---
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
--- NOTE | 2017-08-23 09:21 | Electrocardiograph Report ---
[place] [address] Test Date: 2017-08-18 Pat Name: Lisa Yuen Department: 102 Room: 2A16 Gender: F Ink Technician: Nelda : 1950 Requested By: Alex Pierce Order Number: [id number] Reading MD: Asael An DO Measurements Intervals [place] Rate: 43 P: [place]: 0 QRS: 25 QRSD: 74 T: 53 QT: 448 QTc: 394 Interpretive Statements POSSIBLE JUNCTIONAL RHYTHM NONSPECIFIC ST & T-WAVE ABNORMALITY Electronically Signed On 08-23-2017 9:20:01 EST by Asael An DO
== END 2017-08-22 19:00 | disposition home or self-care (01) | DRG 291 ==
LOC: EMEROO 15:45 → 2NENU 15:45 → SUATTDRO 21:28 → 2NNU 22:48 → 2ANU 08-21 20:54
PROVIDERS: ADMIT Nurse Practitioner Family; ATTEND Internal Medicine

== ENCOUNTER 2019-02-23 15:34 | Inpatient (IN) ==
[2019-02-23 16:27] LABS: Basophils % 0.2 %; Eosinophils # 0.1 K/mcL (0.0-0.6); Hematocrit 41.2 % (35.3-44.9); Hemoglobin 12.9 g/dL (11.5-15.4); Immature Granulocytes % 0.9 % (0-4); Lymphocytes # 1.5 K/mcL (0.6-4.6); Lymphocytes % 13.4 %; Mean Corpuscular HGB Conc 31.3 g/dL (31.6-35.5); Mean Corpuscular Hemoglobin 30.5 pg (28.0-33.3); Mean Corpuscular Volume 97.4 fL (83.0-100.0); Mean Platelet Volume 10.3 fL (9.4-12.4); Monocytes # 0.9 K/mcL (0.0-1.3); Monocytes % 7.6 %; Neutrophils # 8.8 K/mcL (1.6-8.9); Platelet Count 224 K/mcL (140-400); Red Blood Count 4.23 M/mcL (3.82-4.97); Red Cell Distribution Width 14.7 % (11.5-14.5); Segmented Neutrophils % 76.9 %; White Blood Count 11.4 K/mcL (4.3-11.1)
[2019-02-23 16:49] LABS: Alanine Aminotransferase 17 Units/L (7-52); Albumin/Globulin Ratio 1.3 (1.1-2.2); Alkaline Phosphatase 108 Units/L (34-104); Aspartate Amino Transferase 21 Units/L (13-39); BUN/Creatinine Ratio 16 (6-26); Bilirubin,Total 0.6 mg/dL (0.3-1.0); Blood Urea Nitrogen 20 mg/dL (8-23); Calcium 9.6 mg/dL (8.6-10.3); Carbon Dioxide 27 mEq/L (23-29); Chloride 100 mEq/L (98-107); Globulin 3.1 g/dL (2.4-3.5); Glucose 131 mg/dL (70-105); Osmolality,Calculated 294 (280-300); Sodium 140 mEq/L (136-145); Total Protein 7.1 g/dL (6.4-8.9); Troponin I < 0.03 ng/mL (< 0.04); eGFR For African Americans 52 (> 60); eGFR For Non-African Americans 43 (> 60)
[2019-02-23 17:00] LABS: Bilirubin,Urine Small (Negative); Blood,Urine Large (Negative); Clarity,Urine Turbid (Clear); Color,Urine Dark Yellow (Yellow); Glucose,Urine (UA) Normal (Normal); Ketones,Urine Trace mg/dL (Negative); Leukocyte Esterase,Urine Large (Negative); Nitrite,Urine Positive (Negative); Protein,Urine 30 mg/dL (Neg-Trace); Specific Gravity,Urine 1.027 (1.010-1.025); Urobilinogen,Urine Normal (Normal)
[2019-02-23 17:02] LABS: Bacteria,Urine Many per hpf (None-Few); Hyaline Casts,Urine None Seen per lpf (None-Few); Squamous Epithelial Cell,Urine Many per lpf (None-Few); WBC,Urine TNTC per hpf (0-3)
[2019-02-23 17:14] LABS: Amorphous Sediment,Urine Many (Few)
[2019-02-23 17:16] LABS: RBC,Urine Present per hpf (0-3)
[2019-02-23] MEDS ORDERED: *HR* FentaNYL (PF) 100 MCG/2 ML VIAL IVP ONE (18:24)
[2019-02-23] MEDS ORDERED: cefTRIAXone 1,000 MG in Water for inj. (sterile) 10 ML IVP ONE (18:47)
[2019-02-23 21:28] LABS: Prothrombin Time 23.3 Seconds (9.4-12.1)
[2019-02-24] MEDS ORDERED: Naloxone 0.4 MG/ML INJ IVP PRN (04:22)
[2019-02-24] MEDS ORDERED: Dextrose Gel 15 GM/37.5 ML TUBE PO PRN ×2 (04:24)
[2019-02-24] MEDS ORDERED: *HR* Dextrose 50 % in Water (Syg) 50 ML SYRINGE IVP PRN (04:24)
[2019-02-24] MEDS ORDERED: D5% in Water 1,000 ML IVC PRN (04:24)
[2019-02-24] MEDS ORDERED: Acetaminophen 325 MG TABLET PO PRN (04:26)
[2019-02-24 05:18] LABS: Hematocrit 34.9 % (35.3-44.9); Mean Corpuscular HGB Conc 31.5 g/dL (31.6-35.5); Mean Corpuscular Hemoglobin 30.6 pg (28.0-33.3); Mean Corpuscular Volume 96.9 fL (83.0-100.0); Mean Platelet Volume 10.1 fL (9.4-12.4); Platelet Count 199 K/mcL (140-400); Red Cell Distribution Width 14.6 % (11.5-14.5); White Blood Count 9.8 K/mcL (4.3-11.1)
[2019-02-24 05:39] LABS: Calcium 9.2 mg/dL (8.6-10.3); Potassium 4.3 mEq/L (3.5-5.1)
[2019-02-24] MEDS: *HR* HYDROcodone/Acet 5/325 mg TABLET PO PRN ×3 (05:54→23:04)
[2019-02-24] MEDS: cefTRIAXone 1,000 MG in Water for inj. (sterile) 10 ML IVP SCH (07:16)
[2019-02-24] MEDS: Insulin LISPRO 300 UNITS/3 ML VIAL SQ SCH ×4 (07:45→21:16)
[2019-02-24] MEDS ORDERED: Perflutren Lipid Microsphere 1.3 ML in 0.9 % Sodium Chloride 8.7 ML IVP ONE (09:09)
[2019-02-24] MEDS: Apixaban 5 MG TABLET PO SCH (21:16)
[2019-02-24] MEDS: Ranolazine 500 MG TAB.ER.12H PO SCH (21:16)
[2019-02-25] MEDS ORDERED: LIRAGLUTIDE 1.2 MG SQ SCH (09:00)
[2019-02-25] MEDS: cefTRIAXone 1,000 MG in Water for inj. (sterile) 10 ML IVP SCH (09:16)
[2019-02-25] MEDS: Iron Polysaccharide Complex 150 MG CAPSULE PO SCH (09:17)
[2019-02-25] MEDS: Isosorbide MONOnitrate (24 HR) 60 MG TAB.ER.24H PO SCH (09:17)
[2019-02-25] MEDS: Aspirin Enteric Coated 81 MG Tablet PO SCH (09:17)
[2019-02-25] MEDS: Ranolazine 500 MG TAB.ER.12H PO SCH ×2 (09:17→21:11)
[2019-02-25] MEDS: amLODIPine 5 MG TABLET PO SCH (09:17)
[2019-02-25] MEDS: Loratadine 10 MG TABLET PO SCH (09:17)
[2019-02-25] MEDS: Apixaban 5 MG TABLET PO SCH ×2 (09:17→21:12)
[2019-02-25] MEDS: Insulin LISPRO 300 UNITS/3 ML VIAL SQ SCH ×4 (09:18→21:26)
[2019-02-25] MEDS: Furosemide 40 MG TABLET PO SCH (09:18)
[2019-02-25] MEDS: *HR* HYDROcodone/Acet 5/325 mg TABLET PO PRN (09:24)
[2019-02-25] MEDS: *HR* OxyCODONE Immed Rel 5 MG TABLET PO PRN (14:46)
[2019-02-25] MEDS ORDERED: Insulin DETEMIR 100 UNIT/ML X5UNITS SQ SCH (21:00)
[2019-02-26] MEDS: *HR* HYDROcodone/Acet 5/325 mg TABLET PO PRN (05:32)
[2019-02-26] MEDS: Aspirin Enteric Coated 81 MG Tablet PO SCH (08:23)
[2019-02-26] MEDS: Iron Polysaccharide Complex 150 MG CAPSULE PO SCH (08:23)
[2019-02-26] MEDS: Furosemide 40 MG TABLET PO SCH (08:23)
[2019-02-26] MEDS: cefTRIAXone 1,000 MG in Water for inj. (sterile) 10 ML IVP SCH (08:24)
[2019-02-26] MEDS: Loratadine 10 MG TABLET PO SCH (08:24)
[2019-02-26] MEDS: Ranolazine 500 MG TAB.ER.12H PO SCH (08:24)
[2019-02-26] MEDS: Isosorbide MONOnitrate (24 HR) 60 MG TAB.ER.24H PO SCH (08:24)
[2019-02-26] MEDS: Apixaban 5 MG TABLET PO SCH (08:24)
[2019-02-26] MEDS: Insulin LISPRO 300 UNITS/3 ML VIAL SQ SCH ×2 (08:24→17:51)
[2019-02-26] MEDS: amLODIPine 5 MG TABLET PO SCH (08:24)
[2019-02-26] MEDS: *HR* OxyCODONE Immed Rel 5 MG TABLET PO PRN (11:40)
[2019-02-26 15:36] VITALS: BP 106/71
== END 2019-02-26 19:29 | DRG 563 ==
LOC: EMEROOARM 15:34 → 3ANU 15:34 → SUATTDRO 21:04 → 3ANU 22:19
PROVIDERS: ADMIT Family Medicine; ATTEND Internal Medicine

== ENCOUNTER 2021-02-20 12:37 | Inpatient (IN) ==
[2021-02-20 13:38] LABS: Basophils % 0.2 %; Eosinophils # 0.1 K/mcL (0.0-0.6); Eosinophils % 0.4 %; Hematocrit 42.1 % (35.3-44.9); Hemoglobin 13.3 g/dL (11.5-15.4); Immature Granulocytes % 0.6 % (0-4); Lymphocytes # 0.8 K/mcL (0.6-4.6); Lymphocytes % 6.4 %; Mean Corpuscular HGB Conc 31.6 g/dL (31.6-35.5); Mean Corpuscular Hemoglobin 28.4 pg (28.0-33.3); Mean Platelet Volume 10.5 fL (9.4-12.4); Monocytes % 7.3 %; Neutrophils # 11.1 K/mcL (1.6-8.9); Platelet Count 208 K/mcL (140-400); Red Blood Count 4.68 M/mcL (3.82-4.97); Red Cell Distribution Width 13.6 % (11.5-14.5); Segmented Neutrophils % 85.1 %; White Blood Count 13.1 K/mcL (4.3-11.1)
[2021-02-20 14:03] LABS: Alanine Aminotransferase 11 Units/L (7-52); Albumin 3.7 g/dL (3.5-5.7); Albumin/Globulin Ratio 1.2 (1.1-2.2); Alkaline Phosphatase 102 Units/L (34-104); Aspartate Amino Transferase 11 Units/L (13-39); BUN/Creatinine Ratio 12 (6-26); Bilirubin,Direct 0.2 mg/dL (0.0-0.2); Bilirubin,Indirect 1.1 mg/dL (0.0-1.0); Bilirubin,Total 1.3 mg/dL (0.3-1.0); Blood Urea Nitrogen 10 mg/dL (8-23); Carbon Dioxide 26 mEq/L (23-29); Chloride 101 mEq/L (98-107); Globulin 3.2 g/dL (2.4-3.5); Glucose 210 mg/dL (70-105); Osmolality,Calculated 293 (280-300); Potassium 3.2 mEq/L (3.5-5.1); Sodium 139 mEq/L (136-145); Total Protein 6.9 g/dL (6.4-8.9); Troponin I < 0.03 ng/mL (< 0.04); eGFR For African Americans > 60 (> 60); eGFR For Non-African Americans > 60 (> 60)
[2021-02-20 14:12] LABS: Bacteria,Urine Moderate per hpf (None-Few); Bilirubin,Urine Negative (Negative); Blood,Urine Negative (Negative); Clarity,Urine Clear (Clear); Color,Urine Colorless (Yellow); Glucose,Urine (UA) Normal (Normal); Hyaline Casts,Urine Few per lpf (None Seen); Ketones,Urine Negative (Negative); Leukocyte Esterase,Urine Small (Negative); Mucus,Urine Few per lpf (None-Few); Nitrite,Urine Negative (Negative); PH,Urine 5.5 pH Units (5.0-8.0); Protein,Urine Negative (Neg-Trace); RBC,Urine 0-3 per hpf (0-3); Specific Gravity,Urine 1.008 (1.010-1.025); Squamous Epithelial Cell,Urine Few per hpf (None-Few); Urobilinogen,Urine Normal (Normal)
[2021-02-20 14:14] LABS: VBG HCO3 26 mEq/L (21-27); VBG PCO2 36 mmHg (41-51); VBG PH 7.47 pH Units (7.32-7.42); VBG PO2 90 mmHg (25-50)
[2021-02-20 14:46] LABS: Calcium 8.3 mg/dL (8.6-10.3)
[2021-02-20 14:47] LABS: INR 1.9; Prothrombin Time 21.6 Seconds (9.4-12.1)
[2021-02-20 14:50] LABS: Activated Partial Thrombo Time 34.3 Seconds (26.0-36.0)
[2021-02-20 14:56] LABS: Influenza A PCR Negative (Negative); Influenza B PCR Negative (Negative); Resp. Syncytial Virus PCR Negative (Negative)
[2021-02-20 15:01] LABS: SARS-CoV-2 by PCR (In House) Negative (Negative)
[2021-02-20] MEDS ORDERED: cefTRIAXone 1,000 MG in Water for inj. (sterile) 10 ML IVP ONE (15:04)
[2021-02-20] MEDS ORDERED: Azithromycin 250 MG TABLET PO ONE (15:05)
[2021-02-20] MEDS ORDERED: 0.9 % Sodium Chloride 1,000 ML IVC ONE (15:07)
[2021-02-20] MEDS ORDERED: Ringers Solution, Lactated 1,000 ML IVC ONE (16:02)
[2021-02-20] MEDS ORDERED: Ondansetron 4 MG/2 ML VIAL IVP PRN (17:25)
[2021-02-20] MEDS ORDERED: Naloxone 0.4 MG/ML INJ IVP PRN (17:25)
[2021-02-20] MEDS ORDERED: Melatonin 3 MG TABLET PO PRN (17:25)
[2021-02-20] MEDS ORDERED: Acetaminophen 325 MG TABLET PO PRN (17:25)
[2021-02-20] MEDS ORDERED: Ipratropium Neb 0.5 MG NEBULIZER IH PRN (17:30)
[2021-02-20] MEDS ORDERED: predniSONE 20 MG TABLET PO SCH (17:31)
[2021-02-20] MEDS ORDERED: *HR* Dextrose 50 % in Water (Vial) 50 ML VIAL IVP PRN (17:36)
[2021-02-20] MEDS ORDERED: Dextrose Gel 15 GM/37.5 ML TUBE PO PRN ×2 (17:36)
[2021-02-20] MEDS ORDERED: D5% in Water 1,000 ML IVC PRN (17:36)
[2021-02-20] MEDS: 0.9 % Sodium Chloride 1,000 ML IVC SCH (19:50)
[2021-02-20] MEDS: Insulin LISPRO 300 UNITS/3 ML VIAL SUBQ SCH (20:56)
[2021-02-20] MEDS: Levalbuterol Neb 0.63 MG/3 ML IH SCH (22:01)
[2021-02-20] MEDS: predniSONE 20 MG TABLET PO SCH (22:31)
[2021-02-21] MEDS: Levalbuterol Neb 0.63 MG/3 ML IH SCH ×4 (03:42→22:21)
[2021-02-21 07:08] LABS: Basophils % 0.1 %; Hemoglobin 11.9 g/dL (11.5-15.4); Immature Granulocytes % 0.7 % (0-4); Lymphocytes # 0.7 K/mcL (0.6-4.6); Lymphocytes % 6.2 %; Mean Corpuscular HGB Conc 31.3 g/dL (31.6-35.5); Mean Corpuscular Hemoglobin 28.7 pg (28.0-33.3); Mean Corpuscular Volume 91.6 fL (83.0-100.0); Mean Platelet Volume 10.6 fL (9.4-12.4); Monocytes # 0.3 K/mcL (0.0-1.3); Monocytes % 2.8 %; Neutrophils # 10.2 K/mcL (1.6-8.9); Platelet Count 168 K/mcL (140-400); Red Blood Count 4.15 M/mcL (3.82-4.97); Red Cell Distribution Width 13.5 % (11.5-14.5); Segmented Neutrophils % 90.2 %; White Blood Count 11.3 K/mcL (4.3-11.1)
[2021-02-21 07:54] LABS: Albumin 3.3 g/dL (3.5-5.7); Albumin/Globulin Ratio 1.1 (1.1-2.2); Bilirubin,Direct 0.2 mg/dL (0.0-0.2); Bilirubin,Indirect 0.7 mg/dL (0.0-1.0); Bilirubin,Total 0.9 mg/dL (0.3-1.0); Globulin 2.9 g/dL (2.4-3.5); Total Protein 6.2 g/dL (6.4-8.9)
[2021-02-21 07:56] LABS: BUN/Creatinine Ratio 14 (6-26); Blood Urea Nitrogen 12 mg/dL (8-23); Calcium 7.5 mg/dL (8.6-10.3); Carbon Dioxide 26 mEq/L (23-29); Chloride 102 mEq/L (98-107); Glucose 212 mg/dL (70-105); Magnesium 1.2 mg/dL (1.6-2.6); Osmolality,Calculated 294 (280-300); Phosphorous 3.2 mg/dL (2.7-4.5); Potassium 3.3 mEq/L (3.5-5.1); Sodium 139 mEq/L (136-145); eGFR For African Americans > 60 (> 60); eGFR For Non-African Americans > 60 (> 60)
[2021-02-21] MEDS: 0.9 % Sodium Chloride 1,000 ML IVC SCH (08:38)
[2021-02-21] MEDS: Insulin LISPRO 300 UNITS/3 ML VIAL SUBQ SCH ×4 (08:40→21:03)
[2021-02-21] MEDS: Piperacillin/Tazobactam 3.375 GM in 0.9 % Sodium Chloride Mini Bag 100 ML IVPB SCH ×2 (11:40→18:29)
[2021-02-21] MEDS: Ranolazine 500 MG TAB.ER.12H PO SCH ×2 (14:39→21:06)
[2021-02-21] MEDS: predniSONE 20 MG TABLET PO SCH ×2 (14:39→18:21)
[2021-02-21] MEDS: Apixaban 5 MG TABLET PO SCH ×2 (14:39→21:06)
[2021-02-21] MEDS: allopurinoL 300 MG TABLET PO SCH (14:39)
[2021-02-21] MEDS: Aspirin Enteric Coated 81 MG Tablet PO SCH (14:39)
[2021-02-21] MEDS ORDERED: E-Z-HD (BARIUM SULF) SUSPENSION PO ONE (14:58)
[2021-02-21] MEDS ORDERED: E-Z-PAQUE (BARIUM SULF) SUSP 1 BOTTLE PO ONE (14:58)
[2021-02-21] MEDS ORDERED: Piperacillin/Tazobactam 3.375 GM in 0.9 % Sodium Chloride Mini Bag 100 ML IVPB SCH (17:28)
[2021-02-22] MEDS: Piperacillin/Tazobactam 3.375 GM in 0.9 % Sodium Chloride Mini Bag 100 ML IVPB SCH ×3 (03:03→17:36)
[2021-02-22] MEDS: Levalbuterol Neb 0.63 MG/3 ML IH SCH ×4 (03:59→22:38)
[2021-02-22 07:54] LABS: Basophils % 0.1 %; Hematocrit 39.3 % (35.3-44.9); Hemoglobin 12.1 g/dL (11.5-15.4); Immature Granulocytes % 0.4 % (0-4); Lymphocytes # 0.6 K/mcL (0.6-4.6); Lymphocytes % 8.3 %; Mean Corpuscular HGB Conc 30.8 g/dL (31.6-35.5); Mean Corpuscular Hemoglobin 28.4 pg (28.0-33.3); Mean Corpuscular Volume 92.3 fL (83.0-100.0); Mean Platelet Volume 10.5 fL (9.4-12.4); Monocytes # 0.4 K/mcL (0.0-1.3); Neutrophils # 6.6 K/mcL (1.6-8.9); Platelet Count 193 K/mcL (140-400); Red Blood Count 4.26 M/mcL (3.82-4.97); Red Cell Distribution Width 13.6 % (11.5-14.5); Segmented Neutrophils % 86.2 %; White Blood Count 7.6 K/mcL (4.3-11.1)
[2021-02-22 08:06] LABS: BUN/Creatinine Ratio 17 (6-26); Blood Urea Nitrogen 16 mg/dL (8-23); Carbon Dioxide 26 mEq/L (23-29); Chloride 105 mEq/L (98-107); Glucose 272 mg/dL (70-105); Magnesium 1.7 mg/dL (1.6-2.6); Osmolality,Calculated 301 (280-300); Potassium 3.4 mEq/L (3.5-5.1); Sodium 140 mEq/L (136-145); eGFR For African Americans > 60 (> 60); eGFR For Non-African Americans 58 (> 60)
[2021-02-22] MEDS: allopurinoL 300 MG TABLET PO SCH (10:12)
[2021-02-22] MEDS: Aspirin Enteric Coated 81 MG Tablet PO SCH (10:12)
[2021-02-22] MEDS: predniSONE 20 MG TABLET PO SCH (10:12)
[2021-02-22] MEDS: Apixaban 5 MG TABLET PO SCH ×2 (10:13→21:10)
[2021-02-22] MEDS: Ranolazine 500 MG TAB.ER.12H PO SCH ×2 (10:13→21:10)
[2021-02-22] MEDS: Insulin LISPRO 300 UNITS/3 ML VIAL SUBQ SCH ×4 (10:15→21:06)
[2021-02-22] MEDS: Insulin DETEMIR 100 UNIT/ML X5UNITS SUBQ SCH (14:12)
[2021-02-22] MEDS: atenoloL 50 MG TABLET PO SCH (14:12)
[2021-02-22] MEDS: Magnesium Oxide 400 MG TABLET PO SCH (14:12)
[2021-02-22] MEDS ORDERED: Azithromycin 250 MG TABLET PO SCH (15:00)
[2021-02-23] MEDS: Piperacillin/Tazobactam 3.375 GM in 0.9 % Sodium Chloride Mini Bag 100 ML IVPB SCH (01:38)
[2021-02-23] MEDS: Levalbuterol Neb 0.63 MG/3 ML IH SCH ×2 (05:02→11:02)
[2021-02-23 06:31] LABS: Basophils % 0.1 %; Eosinophils % 0.1 %; Hematocrit 38.1 % (35.3-44.9); Hemoglobin 11.7 g/dL (11.5-15.4); Immature Granulocytes % 0.5 % (0-4); Lymphocytes # 1.4 K/mcL (0.6-4.6); Lymphocytes % 14.3 %; Mean Corpuscular HGB Conc 30.7 g/dL (31.6-35.5); Mean Corpuscular Hemoglobin 28.5 pg (28.0-33.3); Mean Corpuscular Volume 92.7 fL (83.0-100.0); Mean Platelet Volume 10.3 fL (9.4-12.4); Monocytes # 0.7 K/mcL (0.0-1.3); Neutrophils # 7.5 K/mcL (1.6-8.9); Platelet Count 208 K/mcL (140-400); Red Blood Count 4.11 M/mcL (3.82-4.97); Red Cell Distribution Width 13.4 % (11.5-14.5); White Blood Count 9.6 K/mcL (4.3-11.1)
[2021-02-23 07:55] VITALS: BP 127/80; PULSE 64; TEMP 97.7; O2SAT 96
[2021-02-23 08:07] LABS: BUN/Creatinine Ratio 21 (6-26); Blood Urea Nitrogen 20 mg/dL (8-23); Calcium 8.5 mg/dL (8.6-10.3); Carbon Dioxide 27 mEq/L (23-29); Chloride 108 mEq/L (98-107); Glucose 176 mg/dL (70-105); Magnesium 1.9 mg/dL (1.6-2.6); Osmolality,Calculated 305 (280-300); Potassium 3.4 mEq/L (3.5-5.1); Sodium 144 mEq/L (136-145); eGFR For African Americans > 60 (> 60); eGFR For Non-African Americans 57 (> 60)
[2021-02-23] MEDS: Magnesium Oxide 400 MG TABLET PO SCH (08:33)
[2021-02-23] MEDS: Insulin DETEMIR 100 UNIT/ML X5UNITS SUBQ SCH (08:33)
[2021-02-23] MEDS: atenoloL 50 MG TABLET PO SCH (08:33)
[2021-02-23] MEDS: Insulin LISPRO 300 UNITS/3 ML VIAL SUBQ SCH (08:33)
[2021-02-23] MEDS: Aspirin Enteric Coated 81 MG Tablet PO SCH (08:33)
[2021-02-23] MEDS: Apixaban 5 MG TABLET PO SCH (08:34)
[2021-02-23] MEDS: Ranolazine 500 MG TAB.ER.12H PO SCH (08:34)
[2021-02-23] MEDS: predniSONE 20 MG TABLET PO SCH (08:34)
[2021-02-23] MEDS: allopurinoL 300 MG TABLET PO SCH (08:34)
[2021-02-23] MEDS ORDERED: Spironolactone 25 MG TABLET PO SCH (09:00)
== END 2021-02-23 11:17 | disposition home or self-care (01) | DRG 871 ==
LOC: 3ANU 12:37 → EMEROOARM 12:37 → 3ANU 18:39 → SUATTDRO 02-21 15:06
PROVIDERS: ADMIT Student in an Organized Health Care Education/Training Program; ATTEND General Practice